=== PATIENT | female | born 1930 | race Caucasian/White ===

== ENCOUNTER → 2016-09-12 | Outpatient (CLI) | payer MEDICARE, BC ==
[~2016-09-12] MED LIST: ALEVE PO; ALEVE220 M1 PO; ANTIVERT PO; APRESOLINE PO; ARTHRITIS; ASPIRIN EC81 M1 PO; ASPIRIN PO; ASPIRIN81 M1 PO; ASPIRIN81 M2 PO; ATIVAN PO; ATORVASTATIN CA80 MG PO; CARVEDILOL6.25 MG PO; CATAPRES0.1 MG PO; CELEXA20 MG PO; CENTRUM PO; CENTRUM SILVER PO; CENTRUM SILVER1 EAC2 PO; CIPRO PO; CLONAZEPAM0.5 MG PO; COREG6.25 MG PO; CYCLOBENZAPRINE5 MG PO; DARVOCET-N 1001 TAB PO; DIOVAN HCT 160-1 TAB PO; ENDOCET 5-3251 EACH PO; FAMOTIDINE PO; FISH OIL 1,0001 CAP PO; FISH OIL 1,2001 EAC1 PO; HYDRALAZINE HCL50 MG PO; IBUPROFEN PO; INDERAL LA PO; INDERAL60 MG PO; KLONOPIN0.5 M3 PO; KLONOPIN0.5 MG PO; LASIX20 MG PO; LIPITOR PO; LIPITOR80 MG PO; LOPRESSOR PO; LOSARTAN POTAS100 MG PO; LOSARTAN-HCTZ1 EAC1 PO; MACROBID100 MG DOB; MEDI-MECLIZINE25 M1 PO; METAMUCIL; MOTION SICKNESS25 M5 PO; MULTI-VIT/MIN P1 TAB PO; NITROFURANTOIN100 M3 PO; PATIENT'S PHARMACY; PRESERVISION S1 EACH PO; PRESERVISION SO1 CAP PO; PRESERVISION1 EA PO; PRILOSEC PO; PRILOSEC20 M1 PO; PRINCIPEN250 MG PO; PROPRANOLOL HCL80 M1 PO; PROTONIX PO; SIMVASTATIN40 MG PO; ST JOSEPH ASPIR81 M1 PO; TOPROL XL 50 MG50 M1 PO; TOPROL XL PO; TRAMADOL HCL50 M1 PO; TRAMADOL HCL50 M2 PO; TYLENOL; ULTRAM PO; ZOFRAN ODT4 MG PO
--- NOTE | ~2016-09-12 | CT4 ---
[facility] A Service of [facility] RADIOLOGY TEXT RESULTS PATIENT: AYANNA GLEASON LOCATION: [facility] : 30 UNIT #: [id number] AGE: [address]: Howard Martinez MD SEX: F ORDER DR: [id number] [facility]. [place], [place] [address] [id number] O MR#: [id number] #: [id number] NAME: AYANNA GLEASON : 1930 SEX: F STUDY DATE/TIME: 09/12/2016 8:12 [facility]: STUDY DESCRIPTION: CT Abd and Pelv Wo Cont Attending Physician: Howard Martinez M.D. Referring Physician: Howard Martinez M.D. Ordering Physician: Howard Martinez M.D. Primary Care Physician: Howard Martinez M.D. MEDICAL IMAGING REPORT This report is preliminary unless electronic signature is present EXAM CT abdomen and pelvis without contrast INDICATIONS 86-year-old female with abdominal pain on and off for [address] abdomen and pelvis performed following the administration of oral contrast only. Coronal and sagittal reformatted images were obtained. This CT exam was performed with one or more of the following radiation dose reduction techniques: automatic exposure control, adjustment of mA and/or kV according to patient size, and iterative reconstruction. COMPARISON 06/07/2015 FINDINGS Evaluation of the lung bases demonstrates a small left pleural effusion and trace right pleural effusion. There is associated passive atelectasis in the lung bases left greater than right. The liver and gallbladder and spleen are unremarkable. The left kidney is unremarkable. There is severe right-sided hydronephrosis. The right ureter is normal in caliber. There is no evidence of any obstructing stone or obvious other obstruction. Stable small bilateral adrenal gland nodules likely adenomas. Pancreas unremarkable. There are kissing iliac stents. Surgical clips around the aorta. Pelvis: Colon is unremarkable. No free fluid. Hysterectomy. 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 IMPRESSION [facility] A Service of [facility] RADIOLOGY TEXT RESULTS PATIENT: AYANNA GLEASON LOCATION: [facility] : 30 UNIT #: [id number] AGE: [address]: Howard Martinez MD SEX: F ORDER DR: 1. There is severe right-sided hydronephrosis. Normal-caliber right ureter. Transition point is that the UPJ. No obstructing stone or obvious other obstruction. 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 2. Small left pleural effusion and trace right pleural effusion. 3. Additional findings as described Dictated by... Manjinder Kidd M.D. THIS IS AN ELECTRONICALLY VERIFIED REPORT Manjinder Kidd M.D. at 09/12/2016 4:52 PM ARS/robin TD: 09/12/2016 14:08 JOB #: [id number] MEDICAL IMAGING REPORT Page 1 of 1 COPY
== END | disposition home or self-care (01) ==
LOC: CCAT 06:53
DX: R10.9 Unspecified abdominal pain (principal); N13.30 Unspecified hydronephrosis; J90 Pleural effusion, not elsewhere classified
CPT/HCPCS: 74176

== ENCOUNTER → 2016-10-03 | Outpatient (CLI) | payer MEDICARE, BC | END | disposition home or self-care (01) | LOC: CSSDAY 10:03 | DX: M81.0 Age-related osteoporosis without current pathological fracture (principal); Z79.899 Other long term (current) drug therapy | CPT/HCPCS: 96372; J0897 ==

== ENCOUNTER 2016-11-29 16:11 | Inpatient (IN) | payer MEDICARE, BC ==
--- NOTE | ~2016-11-29 | OR ---
Unit #: [id number] #: [id number] Patient: AYANNA GLEASON [id number] [address] [place], [place] [address] [id number] I MR#: [id number] NAME: AYANNA GLEASON ROOM: [facility] Date of Procedure: 12/01/2016 Admission Date: 11/29/2016 Surgeon: Dony Girard M.D. : 1930 Attending Physician: Howard Martinez M.D. Primary Care Physician: Howard Martinez M.D. OPERATIVE REPORT PREOPERATIVE DIAGNOSES Noncardiac chest pain and epigastric pain. PROCEDURES PERFORMED Upper gastrointestinal endoscopy and biopsy. POSTOPERATIVE DIAGNOSES 1. Mild prepyloric antral diffuse gastritis. This was primarily in the form of erythema and erythematous streaks. 2. Small hiatus hernia. 3. Rest of the examination was normal up to third part of duodenum. RECOMMENDATIONS The patient should continue on once a day PPI therapy or H2 blockers. The most likely reason for her symptomatology is anxiety. She can be discharged home from GI standpoint on a regular diet. SEDATION USED MAC. DESCRIPTION OF PROCEDURE Following detailed explanation of the potential risks and complications of an upper endoscopy, namely perforation, bleeding, and complication related to sedation, the patient was brought to GI lab and laid in the left lateral decubitus position. Lubricated tip of the Olympus video upper endoscope was passed through the bite block into the proximal esophagus under direct vision. The entire esophageal mucosa was examined and appeared normal. Z-line was nicely demarcated, there being no esophagitis. The patient did have a small hiatus hernia. The scope was then advanced into the gastric cavity and the latter was insufflated. Mucosa of the fundus, body, and antrum was examined and the patient was noted to have diffuse prepyloric antral erythema indicating antral gastritis. No erosions or ulcers were seen. Pylorus was intubated with visualization of the normal duodenal bulb and second and third part of the duodenum. Upon withdrawal and retroflexion; incisura, cardia, and greater curve was examined and biopsy was obtained from the antrum for CLOtest. The scope was then withdrawn in the distal esophagus. The entire esophageal mucosa was examined all the way up to pharynx, no additional findings were noted. The patient tolerated the procedure without any postprocedure complications. Unit #: [id number] #: [id number] Patient: AYANNA GLEASON Dictated by..Cliff Bennett/shanda TD: 12/01/2016 10:05 JOB #: [id number] OPERATIVE REPORT Page 1 of 1 X Dony Girard MD PROCEDURE OPERATIVE NOTE
--- NOTE | ~2016-11-29 | HP ---
Unit #: [id number] #: [id number] Patient: AYANNA GLEASON [id number] [address] [place], [place] [address] [id number] I MR#: [id number] NAME: AYANNA GLEASON ROOM: 330 Age: 86 Sex: F Admission Date: 11/29/2016 : 1930 Attending Physician: Howard Martinez M.D. Primary Care Physician: Howard Martinez M.D. HISTORY AND PHYSICAL HISTORY OF PRESENT ILLNESS This is an 86-year-old white female with history of coronary artery disease with stent x2, hypertension, hyperlipidemia, abdominal aortic aneurysm repair, left carotid endarterectomy, Paget disease of the bone, chronic vertigo and familial tremor. Admitted through the emergency room with atypical chest pain that began at rest. There was no radiation, no diaphoresis, no nausea or vomiting, no near syncope, no palpitations, no pleuritic component. In the emergency room cardiac enzymes were normal. EKG showed nonspecific changes. The rest of her labs were fairly unremarkable except for some renal insufficiency, which is chronic and stable for the patient, and she is admitted for further evaluation. The patient has been placed on aspirin, Lovenox, nitro paste in a monitored bed. She has had no further chest pain since she has been here. Repeat cardiac enzymes were within normal limits, although her EKG showed some new inverted T waves in the lateral leads this morning. ALLERGIES She has stated intolerances or allergies to Lortab, Cipro, Zithromax, Phenergan, Lomotil. MEDS PRIOR TO ADMISSION 1. Pepcid 20 mg daily. 2. Hydralazine 100 mg b.i.d. 3. Propranolol ER 80 mg daily. 4. Meclizine 25 mg p.o. q.a.m. 5. Centrum 1 p.o. daily. 6. PreserVision 1 p.o. daily. 7. Aspirin 81 mg p.o. daily. 8. Lipitor 80 mg p.o. daily. 9. Klonopin 1 mg p.o. daily at bedtime. 10. Tramadol 50 mg t.i.d. p.r.n. pain. 11. Endocet 5/325 mg 1 p.o. b.i.d. p.r.n. pain. SURGICAL HISTORY 1. Cardiac stent. 2. Left carotid endarterectomy. 3. Abdominal aortic aneurysm repair. 4. Common iliac artery stent. 5. Cataract surgery. PAST MEDICAL HISTORY Unit #: [id number] #: [id number] Patient: AYANNA GLEASON 1. Paget disease of the bone. 2. Essential tremor. 3. Vertigo. 4. Peripheral arterial disease. 5. Coronary artery disease. 6. Hyperlipidemia. 7. Hypertension. SOCIAL HISTORY . Nonsmoker. Occasional alcohol. No street drug use. FAMILY HISTORY Family history is noncontributory. PHYSICAL EXAMINATION GENERAL: She is awake, alert, oriented x3, in no acute distress. VITALS: Afebrile. Pulse 76, respirations 19, blood pressure 129/52, O2 sats 96% on room air. HEENT: Unremarkable. NECK: Neck was supple without JVD, bruits, adenopathy or thyromegaly. CHEST: Clear to auscultation. CARDIOVASCULAR: Heart has a regular rate and rhythm with a soft systolic murmur best appreciated at the apex without an S3 gallop heard. ABDOMEN: Abdomen was soft, nondistended, nontender with positive bowel sounds and no hepatosplenomegaly. EXTREMITIES: Extremities showed no clubbing, cyanosis or edema. /RECTAL: Deferred. NEUROLOGIC: Exam is grossly intact except for the resting tremor. IMPRESSION 1. Chest pain. 2. Coronary artery disease. 3. Peripheral arterial disease. 4. Hypertension. 5. Hyperlipidemia. 6. Paget disease of the bone. 7. Chronic vertigo. 8. Familial tremor. 9. Status post abdominal aortic aneurysm repair. 10. Status post left carotid endarterectomy. 11. Chronic kidney disease, stage 3. PLAN Nitro paste, aspirin, Lovenox. Cardiology consult for possible cath versus stress testing. Further evaluation pending results of the above. Dictated by Howard Martinez M.D. LILY/alexia TD: 11/30/2016 08:22 JOB #: [id number] Unit #: [id number] #: [id number] Patient: AYANNA GLEASON HISTORY AND PHYSICAL Page 1 of 1 X Howard Martinez MD HISTORY AND PHYSICAL
--- NOTE | ~2016-11-29 | EKG ---
PATIENT: AYANNA GLEASON UNIT #: [id number] Ventricular Rate: 70 BPM Atrial Rate: 70 BPM P-R Interval: 140 ms QRS Duration: 104 ms Q-T Interval: 444 ms QTC Calculation(Bezet): 479 ms P Wallace: 5 degrees Calculated R Wallace: 37 degrees Calculated T Wallace: -34 degrees Diagnosis Line: Sinus rhythm with occasional Premature ventricular Diagnosis Line: complexes Diagnosis Line: Inferior infarct (cited on or before 17-JUL-2011) Diagnosis Line: Abnormal ECG Diagnosis Line: When compared with ECG of 29-NOV-2016 18:04, Diagnosis Line: Premature ventricular complexes are now Present Diagnosis Line: Questionable change in initial forces of Inferior Diagnosis Line: leads Diagnosis Line: Confirmed by TINO VILLASENOR MD ([id number]) on Diagnosis Line: 12/01/2016 7:20:46 AM INTERPRETING MD: PAULETTE
--- NOTE | ~2016-11-29 | EKG ---
PATIENT: AYANNA GLEASON UNIT #: [id number] Ventricular Rate: 70 BPM Atrial Rate: 70 BPM P-R Interval: 148 ms QRS Duration: 108 ms Q-T Interval: 436 ms QTC Calculation(Bezet): 470 ms P Crowley: 63 degrees Calculated R Crowley: 10 degrees Calculated T Crowley: -29 degrees Diagnosis Line: Normal sinus rhythm Diagnosis Line: Possible Inferior infarct (cited on or before Diagnosis Line: 17-JUL-2011) Diagnosis Line: Abnormal ECG Diagnosis Line: When compared with ECG of 08-APR-2013 19:31, Diagnosis Line: Questionable change in initial forces of Inferior Diagnosis Line: leads Diagnosis Line: Confirmed by TINO VILLASENOR MD ([id number]) on Diagnosis Line: 11/29/2016 10:55:41 PM INTERPRETING MD: PAULETTE
--- NOTE | ~2016-11-29 | CT4 ---
[facility] A Service of [facility] RADIOLOGY TEXT RESULTS PATIENT: AYANNA GLEASON LOCATION: [facility] : 30 UNIT #: [id number] AGE: [address]: Howard Martinez MD SEX: F ORDER DR: [id number] [facility]. [place], [place] [address] [id number] I MR#: [id number] Acc #: [id number] NAME: AYANNA GLEASON : 1930 SEX: F STUDY DATE/TIME: 11/30/2016 18:11 UNIT: A PCU ROOM: [facility] STUDY DESCRIPTION: CT Abd and Pelv Wo Cont Attending Physician: Howard Martinez M.D. Ordering Physician: Howard Martinez M.D. Primary Care Physician: Howard Martinez M.D. MEDICAL IMAGING REPORT This report is preliminary unless electronic signature is present EXAM CT abdomen and pelvis without contrast INDICATIONS Intermittent epigastric abdominal pain for the past 30 years, but worse over the past 2-[address] of the abdomen and pelvis. This CT exam was performed with one or more of the following radiation dose reduction techniques: automatic exposure control, adjustment of mA and/or kV according to patient size, and iterative reconstruction. COMPARISON 09/12/2016 FINDINGS ABDOMEN WITHOUT CONTRAST: Cardiomegaly. Linear scarring in the lung bases. The liver, spleen are unremarkable. Bilateral adrenal hyperplasia. Suspected right-sided hydronephrosis with cortical thinning in keeping with longstanding obstruction. This is stable. Pancreas, gallbladder show no acute abnormality. Moderate colonic stool burden. Bowel loops are nondilated. Atherosclerotic irregularity, abdominal aorta. There are bilateral common iliac stents in place. PELVIS WITHOUT CONTRAST: Previous hysterectomy. No pelvic mass. There is stable sclerosis of the left hemipelvis in keeping with Paget's disease. IMPRESSION [facility] A Service of [facility] RADIOLOGY TEXT RESULTS PATIENT: AYANNA GLEASON LOCATION: [facility] : 30 UNIT #: [id number] AGE: [address]: Howard Martinez MD SEX: F ORDER DR: 1. No clearly acute findings. 2. Likely chronic obstructive appearance of the right kidney is unchanged from the prior. 3. Other incidental findings are detailed above. Dictated by... Hubert Redman M.D. THIS IS AN ELECTRONICALLY VERIFIED REPORT Hubert Redman M.D. at 12/01/2016 10:06 AM LURDES/tello TD: 11/30/2016 18:50 JOB #: [id number] MEDICAL IMAGING REPORT Page 1 of 1 COPY
--- NOTE | ~2016-11-29 | CO ---
Unit #: [id number] #: [id number] Patient: AYANNA GLEASON [id number] [address] [place], [place] [address] [id number] I MR#: [id number] NAME: AYANNA GLEASON. ROOM: 330 Age: 86 Sex: F Admission Date: 11/29/2016 : 1930 Attending Physician: Howard Martinez M.D. Primary Care Physician: Howard Martinez M.D. Consultation Date: 11/30/2016 CONSULTATION REPORT REASON FOR CONSULTATION Chest pain. HISTORY OF PRESENT ILLNESS This is an 86-year-old white female with known history of coronary artery disease back in 2002, had an inferior wall IL, had PCI and stents placed to the proximal LAD and first diagonal branch. Other findings at that time showed 100% occlusion in the RCA and 30% to 40% stenosis in the distal left main. The patient since that time has had one stress test and it showed inferior wall involvement, ejection fraction was 69%. The patient does have Paget disease, hypertension, and hyperlipidemia, has had carotid endarterectomy, AAA repair, and COPD. The patient also is a reformed smoker. Drinks a glass of wine daily. She came to the emergency room after she had an onset of anxiousness, restlessness, and has some upper quadrant lower ribcage area discomfort. She explained it is just feeling like it was fullness, really was in the exact pain. She denied any pain up in substernal chest area up into the neck, bilateral jaws, shoulders, arms, or elbow. She denies any palpitations. No dizziness, presyncope, or syncope. Denies any shortness of breath. No recent cough, fever, or chills. She did say she was having a lot of belching. In the emergency room, the patient's blood pressure was 187/104, heart rate was 69, respirations 20, temperature 97.7, O2 saturation 98% on room air. Blood pressure was 187/104 mmHg. The patient was given two baby aspirins and normal saline started at 100 mL an hour, and was admitted for chest pain. Cardiology also given nitrate and subcu Lovenox. Cardiology consult to assist with evaluation and management. EKG showed normal sinus rhythm with some ST-T wave abnormalities in inferolateral leads also. Initial cardiac enzymes are negative. PAST MEDICAL HISTORY 1. Coronary artery disease. 2. Previous inferior wall IL in 2002, status post PCI and stent to the proximal LAD and first diagonal branch. Other findings on the cardiac cath revealed 100% occlusion of the RCA, distal left main 30% to 40% stenosis and normal left circumflex. 3. In 2007, adenosine Cardiolite stress test, layla-infarct ischemia involving the inferior wall with LVEF of 69%. 4. Paget disease. 5. Hypertension. 6. Hyperlipidemia. Unit #: [id number] #: [id number] Patient: AYANNA GLEASON 7. Peripheral vascular disease, left carotid endarterectomy, common iliac stent in 2002. 8. Abdominal aortic aneurysm repair in 1999. 9. COPD. 10. Gastroesophageal reflux disease. 11. History of vertigo. 12. Drinks a glass of wine daily. 13. Essential tremors. 14. Reformed smoker. 15. Chronic kidney disease, follows Dr. Pete. PAST SURGICAL HISTORY 1. Left carotid endarterectomy. 2. Iliac stent. 3. Abdominal aortic repair in 1999. 4. Status post PCI and stents to the proximal LAD and first diagonal branch in 2002. 5. Partial hysterectomy. 6. Cataract surgery. 7. Nephrostomy tube. HOME MEDICATIONS 1. Pepcid 20 mg p.o. daily. 2. Hydralazine 50 mg p.o. twice daily. 3. Propranolol 80 mg p.o. daily. 4. Meclizine 25 mg daily p.r.n. 5. Centrum vitamin 1 tablet p.o. daily. 6. PreserVision one tablet p.o. daily. 7. Aspirin 81 mg daily. 8. Atorvastatin 80 mg p.o. at bedtime. 9. Klonopin 1 tablet p.o. at bedtime. 10. Tramadol 50 mg t.i.d. p.r.n. for pain. 11. Endocet 5/325 one tablet p.o. twice daily p.r.n. ALLERGIES Hydrocodone, ciprofloxacin, azithromycin, promethazine, diphenoxylate. SOCIAL HISTORY The patient lives in her home. She is alone. She ambulates without a cane or walker. Does some of her light chores. She has a lot of knee problems. She quit smoking about 30 years ago. Drinks a glass of wine at night. No illicit drug abuse. FAMILY HISTORY Her mother at an elderly age, but had heart problems. Her father was in his 80s of unknown causes. Her siblings were in generally well health. REVIEW OF SYSTEMS See details in HPI. PHYSICAL EXAMINATION GENERAL: Ms. Ramos is an 86-year-old white female, in no acute respiratory distress. She is awake, alert, and oriented. VITAL SIGNS: Blood pressure is 140/56, heart rate 72, respirations 16, temperature 98.9, O2 saturations 96% on room air. NECK: Trachea midline. No thyromegaly or lymphadenopathy. Bilateral carotid bruits noted. Unit #: [id number] #: [id number] Patient: AYANNA GLEASON HEART: S1 and S2. Regular rate and rhythm. Soft systolic murmur in left sternal border. LUNGS: Diminished, otherwise clear. ABDOMEN: Soft and nontender. Positive bowel sounds present. EXTREMITIES: Pedal pulses are palpable. No pedal edema. DIAGNOSTIC STUDIES LABORATORY RESULTS: Glucose is 101, BUN 41, creatinine 2.0, EGFR is 22.0, sodium 142, potassium 3.9, chloride 110, CO2 of 25, calcium is 8.5, magnesium is 2.1. Total protein 7.8, albumin 4.6, bilirubin total 1.0, AST 29, ALT 22, alkaline phosphatase is 60. WBC is 6.8, hemoglobin 11.8, hematocrit 36.4, and platelets is 173. Initial cardiac enzymes CK-MB is 1.7, troponin less than 0.05. INR is 1.1. Urinalysis shows trace leuk esterase, 1+ protein, 1.0 urobilinogen, 5 to 10 wbc's, negative bacteria. Chest x-ray shows cardiomegaly. No effusions. Hiatal hernia. EKG shows normal sinus rhythm. T-wave inversion in inferolateral leads. Slow R-wave progression, left ventricular hypertrophy, biatrial enlargement. IMPRESSION 1. Chest pain questionable atypical. 2. Anxiety. 3. History of coronary artery disease. Previous myocardial infarction, status post percutaneous coronary intervention and stents to the proximal left anterior descending and first diagonal branch in 2002. 4. Paget disease. 5. Hypertension. 6. Hyperlipidemia. 7. Previous left carotid endarterectomy. 8. Abdominal aortic aneurysm repair. 9. Chronic obstructive pulmonary disease, reformed smoker. 10. Essential tremors. 11. Chronic kidney disease. 12. History of vertigo. 13. Drinks a glass of wine daily. 14. Reformed smoker. PLAN 1. Cardiology consult to assist with evaluation and management. On interview and examine the patient, her symptoms are somewhat atypical for unstable angina palpating on the lower rib cage area, upper quadrant areas where she explained she has a fullness. She says it not really any type of pain. She denies any diaphoresis, palpitations, dizziness, shortness of breath with sensation. Dr. Payton had a long discussion with the patient and she prefers not to have any ischemic heart disease workup at this time if it is not necessary. She may have had some type of anxiety with a spell, was start Celexa 20 mg p.o. daily. 2. On exam, there is no signs or symptoms of acute congestive heart failure. 3. Stop the nitroglycerin paste. Continue on aspirin, in addition to she is on hydralazine and propranolol and statin. Her blood pressure is fluctuating a little bit, but we will monitor and make any adjustments if needed. 4. Further recommendations pending per Dr. Payton. We will instruct her to follow up with Dr. Man on , January 26 at 1:45 p.m. the patient is active patient of Dr. Man and has not seen him over a year, so we will make sure she is aware that scheduled appointment. Unit #: [id number] #: [id number] Patient: AYANNA GLEASON Thank you very much for allowing us to assist in the care. Dictated by... Yaniv Velarde/shanda TD: 12/01/2016 12:15 JOB #: [id number] CC: Howard Martinez M.D. CONSULTATION REPORT Page 1 of 1 X Sandrita Strange APRN X CONSULTATION REPORT
--- NOTE | ~2016-11-29 | CR72 ---
[facility] A Service of [facility] RADIOLOGY TEXT RESULTS PATIENT: AYANNA GLEASON LOCATION: [facility] 330- : 30 UNIT #: [id number] AGE: [address]: Howard Martinez MD SEX: F ORDER DR: [id number] [facility] [address]. [place], [place] [address] [id number] I MR#: [id number] Acc #: [id number] NAME: AYANNA GLEASON. : 1930 SEX: F STUDY DATE/TIME: 11/29/2016 17:28 UNIT: [address] ROOM: [facility] STUDY DESCRIPTION: CR Chest Single View Portable Attending Physician: Howard Martinez M.D. Ordering Physician: Thuan Matute D.O. Primary Care Physician: Howard Martinez M.D. MEDICAL IMAGING REPORT This report is preliminary unless electronic signature is present EXAM Portable chest. HISTORY Chest tightness, shortness of air with activity x2 days. COMPARISON 04/08/2013 FINDINGS A portable view of the chest demonstrates lordotic positioning. Cardiomegaly. No focal airspace disease or consolidation. No sizeable effusions. No visible pneumothorax. Middle mediastinal density suggests hiatal hernia. Dictated by... Lilliana Kidd M.D. THIS IS AN ELECTRONICALLY VERIFIED REPORT Lilliana Kidd M.D. at 11/30/2016 2:48 PM Nura TD: 11/30/2016 00:18 JOB #: [id number] MEDICAL IMAGING REPORT Page 1 of 1 COPY
--- NOTE | ~2016-11-29 | EKG ---
PATIENT: AYANNA GLEASON UNIT #: [id number] Ventricular Rate: 60 BPM Atrial Rate: 60 BPM P-R Interval: 152 ms QRS Duration: 100 ms Q-T Interval: 452 ms QTC Calculation(Bezet): 452 ms P [place]: 20 degrees Calculated R [place]: 3 degrees Calculated T [place]: -18 degrees Diagnosis Line: Normal sinus rhythm Diagnosis Line: T wave abnormality, consider inferolateral Diagnosis Line: ischemia Diagnosis Line: Abnormal ECG Diagnosis Line: When compared with ECG of 30-NOV-2016 06:23, Diagnosis Line: (unconfirmed) Diagnosis Line: Premature ventricular complexes are no longer Diagnosis Line: Present Diagnosis Line: Confirmed by TINO VILLASENOR MD ([id number]) on Diagnosis Line: 12/01/2016 7:25:09 AM INTERPRETING MD: PAULETTE
--- NOTE | ~2016-11-29 | CO ---
Unit #: [id number] #: [id number] Patient: AYANNA MILLER [id number] [address] [place], [place] [address] [id number] I MR#: [id number] NAME: AYANNA MILLER. ROOM: 330 Age: 86 Sex: F Admission Date: 11/29/2016 : 1930 Attending Physician: Howard Martinez M.D. Primary Care Physician: Howard Martinez M.D. Consultation Date: 11/30/2016 CONSULTATION REPORT REASON FOR CONSULTATION Atypical upper abdominal and chest pain. HISTORY OF PRESENT ILLNESS Ms. Miller is an 86-year-old white female. The patient is . Her having many years, so the patient lives by herself. She does not drive and is dependent of her daughter for any outdoor shopping or chores. She says she has always on the go and wants to be busy. She mentions what seems like extremely restless situation, where she was complaining of discomfort in the retrosternal area of the chest as well as in the upper abdomen. There were no preceding nausea, vomiting, or dyspeptic symptoms. She denies any history of relationship with meals in these symptoms. Overall, she is feeling better in herself and now there has been no recent change in her bowel pattern, although the latter is generally erratic with intermittent episodes of loose bowel movements. Her appetite is unchanged. There is no history of weight loss. PAST MEDICAL HISTORY Significant for history of hypertension; coronary artery disease, status post PTCA and angioplasties and coronary stents. She also history of hyperlipidemia, history of abdominal aortic aneurysm repair, Paget's disease of bone, history of hereditary familial tremor and chronic vertigo. PAST SURGICAL HISTORY Included a PTCA and angioplasty and coronary artery stent placement, also history of left carotid endarterectomy, repair of an abdominal aortic aneurysm, stenting of common iliac artery, and cataract surgery. MEDICATIONS At home included Pepcid, hydralazine, propranolol, meclizine, Centrum Silver, PreserVision, aspirin, Lipitor, Klonopin, tramadol, Endocet. ALLERGIES Lortab, ciprofloxacin, Zithromax, Phenergan, and Lomotil. SOCIAL HISTORY She does not smoke. Drinks very rarely. Lives at home by herself. She is . FAMILY HISTORY No family history of colon, pancreatic cancer, or liver disease. REVIEW OF SYSTEMS Detailed review of organ systems does not reveal any recent weight loss. Unit #: [id number] #: [id number] Patient: AYANNA MILLER No history of fever, chills, or rigors. No history of headache or syncope. No history of dysuria, hematuria, or pyuria. No history of focal seizures or extremity weakness. Rest of the review of organ system is unremarkable. PHYSICAL EXAMINATION GENERAL: She is comfortable, alert, and oriented. VITAL SIGNS: Temperature is 98.2, pulse 69 per minute and regular, respiratory rate 16, blood pressure is 142/52. She weighs 137 pounds and her baseline weight is about 150 pounds in the past. There is weight loss about 20 pounds in the past year or two. HEENT: She has no pallor, icterus, lymphadenopathy, or peripheral edema. CARDIOVASCULAR: Normal heart sounds. No murmurs. LUNGS: Auscultation over the lungs reveal normal breath sounds. Good air entry. ABDOMEN: Soft and nontender. Liver and spleen are not palpable. Bowel sounds normal. DIAGNOSTIC STUDIES LABORATORY RESULTS: Shows a BUN and creatinine 41 and 2.0. CBC is unremarkable. CLINICAL IMPRESSION 1. The patient has atypical chest pain and epigastric pain. Consider a diagnostic endoscopy in this situation, even though there were no clear-cut dyspeptic symptoms. She also has acute kidney injury and the etiology of this is probably prerenal. 2. Possible anxiety. 3. Weight loss about 20 pounds in the past couple of years. 4. A diagnostic endoscopy will be performed tomorrow morning. In the meantime, the patient have diet as tolerated. Thank you very much for asking me to see this pleasant woman. I appreciate the consult. Dictated by... Cliff Lewis/hsanda TD: 12/01/2016 01:42 JOB #: [id number] CONSULTATION REPORT Page 1 of 1 X Dony Girard MD X CONSULTATION REPORT
[~2016-11-29 16:11] MED LIST changes: -APRESOLINE PO; -ATIVAN PO; -CATAPRES0.1 MG PO; -CELEXA20 MG PO; -INDERAL LA PO; -LASIX20 MG PO; -LIPITOR80 MG PO; -LOPRESSOR PO; -PATIENT'S PHARMACY; -PRINCIPEN250 MG PO; -PROTONIX PO
[2016-11-29 17:28] LABS: BASOPHIL# 0.1 X10e3 (0-0.3); BASOPHIL% 1.9 % (0-2.5); DIFF IND NO; EOSINOPHIL# 0.1 X10e3 (0-0.7); EOSINOPHIL% 0.9 % (0.0-7.0); HEMATOCRIT 36.4 % (35.0-45.0); HEMOGLOBIN 11.8 gm/dL (12.0-16.0); LYMPHOCYTE# 0.6 X10e3 (1.0-3.5); LYMPHOCYTE% 8.9 % (17.0-45.0); MEAN CELL VOLUME 82.7 FL (83-96); MEAN CORPUSCULAR HEMOGLOBIN 26.8 PG (28-34); MEAN CORPUSCULAR HGB CONC 32.3 g/dL (30-36); MEAN PLATELET VOLUME 9.1 FL (6.5-11.5); MONOCYTE# 0.6 X10e3 (0-1.0); MONOCYTE% 8.4 % (3.0-12.0); NEUTROPHIL# 5.4 X10e3 (1.5-7.1); NEUTROPHIL% 79.9 % (40-75); PLATELET COUNT 173 X10e3 (140-420); RED CELL DISTRIBUTION WIDTH 15.5 % (11.0-15.5); WHITE BLOOD COUNT 6.8 X10e3 (4.0-10.5)
[2016-11-29 17:48] LABS: INR 1.1; PARTIAL THROMBOPLASTIN TIME 26.8 SECONDS (23.5-31.3); PROTHROMBIN TIME (PATIENT) 12.1 SECONDS (10.0-11.7)
[2016-11-29 17:51] LABS: ALBUMIN SERUM 4.6 g/dL (3.5-5.0); BILIRUBIN, DIRECT 0.2 mg/dL (0.0-0.2); BILIRUBIN,INDIRECT 0.8 mg/dL (0.0-0.9); CALCIUM SERUM 9.3 mg/dL (8.4-10.2); CREATININE SERUM 1.9 mg/dL (0.6-1.4); GLOM FILT RATE Estimated 23.5 mL/min (>60); POTASSIUM 3.9 mmol/L (3.5-5.1); PROTEIN TOTAL SERUM 7.8 g/dL (6.0-8.3)
[2016-11-29 18:01] LABS: POC - CKMB 1.6 ng/mL (0.0-7.9); POC - TROPONIN <0.05 ng/mL (<=0.05)
[2016-11-29 19:30] LABS: POC - CKMB 1.7 ng/mL (0.0-7.9); POC - TROPONIN <0.05 ng/mL (<=0.05)
[2016-11-30 02:01] LABS: CK TOTAL 54 IU/L (26-140)
[2016-11-30 08:35] LABS: CK TOTAL 49 IU/L (26-140)
[2016-11-30 09:49] LABS: BUN/CREATININE RATIO 20.5; CALCIUM SERUM 8.5 mg/dL (8.4-10.2); MAGNESIUM 2.1 mg/dL (1.6-3.0); POTASSIUM 3.9 mmol/L (3.5-5.1)
[2016-11-30 11:50] LABS: URINE SOURCE CLEAN CATCH
[2016-11-30 12:01] LABS: CULTURE INDICATED? YES; U HYALINE CASTS AUWI 0-2 /[LPF]; URBCS1 AUWI 0-2 /[HPF] (0-2); URINE APPEARANCE CLEAR; URINE BACTERIA AUWI NEG (NEGATIVE); URINE BILIRUBIN NEG (NEG); URINE BLOOD NEG (NEG); URINE COLOR YELLOW; URINE GLUCOSE NEG (NEG); URINE KETONE TRACE (NEG); URINE LEUKOCYTE ESTERASE TRACE (NEG); URINE NITRATE NEG (NEG); URINE PROTEIN 1+ (NEG); URINE SPECIFIC GRAVITY 1.018 (1.003-1.035); URINE SQUAMOUS EPITHELIAL CELL OCC /[HPF]
[2016-11-30 16:58] LABS: AMYLASE 38 U/L (0-46); LIPASE 35 U/L (22-51)
[2016-12-01 05:19] LABS: HEMATOCRIT 29.5 % (35.0-45.0); MEAN CELL VOLUME 82.8 FL (83-96); MEAN CORPUSCULAR HEMOGLOBIN 26.9 PG (28-34); MEAN CORPUSCULAR HGB CONC 32.4 g/dL (30-36); MEAN PLATELET VOLUME 9.7 FL (6.5-11.5); RED BLOOD COUNT 3.56 X10e (3.90-5.30); RED CELL DISTRIBUTION WIDTH 15.2 % (11.0-15.5)
[2016-12-01 05:24] LABS: HEMOGLOBIN 9.6 gm/dL (12.0-16.0)
[2016-12-01 06:52] LABS: ALBUMIN SERUM 3.4 g/dL (3.5-5.0); BILIRUBIN,TOTAL 0.9 mg/dL (0.2-2.0); BUN/CREATININE RATIO 18.42; CALCIUM SERUM 8.2 mg/dL (8.4-10.2); CREATININE SERUM 1.9 mg/dL (0.6-1.4); GLOM FILT RATE Estimated 23.5 mL/min (>60); POTASSIUM 4.3 mmol/L (3.5-5.1); PROTEIN TOTAL SERUM 5.9 g/dL (6.0-8.3)
== END 2016-12-01 20:41 | disposition left against medical advice (07) | DRG 313 ==
LOC: CED 16:11 → CEDOF 18:20 → CED 19:12 → CEDOF 19:12 → C3A PCU 20:39
PROVIDERS: Emergency Medicine; Internal Medicine; Internal Medicine Cardiovascular Disease; Internal Medicine Gastroenterology
PROC: 0DB78ZX Excision of Stomach, Pylorus, Via Natural or Artificial Opening Endoscopic, Diagnostic (ICD-10-PCS; principal; 2016-11-29)
DX: R07.89 Other chest pain (principal); I25.2 Old myocardial infarction; N17.9 Acute kidney failure, unspecified; J44.9 Chronic obstructive pulmonary disease, unspecified; D64.9 Anemia, unspecified; I47.1 Supraventricular tachycardia; Z95.1 Presence of aortocoronary bypass graft; I12.9 Hypertensive chronic kidney disease with stage 1 through stage 4 chronic kidney disease, or unspecified chronic kidney disease; N18.3 Chronic kidney disease, stage 3 (moderate); I25.10 Atherosclerotic heart disease of native coronary artery without angina pectoris; Z95.5 Presence of coronary angioplasty implant and graft; Z87.891 Personal history of nicotine dependence; E78.5 Hyperlipidemia, unspecified; K21.9 Gastro-esophageal reflux disease without esophagitis; Z90.711 Acquired absence of uterus with remaining cervical stump; Z98.49 Cataract extraction status, unspecified eye; G25.0 Essential tremor; Z79.82 Long term (current) use of aspirin; K44.9 Diaphragmatic hernia without obstruction or gangrene; K29.50 Unspecified chronic gastritis without bleeding; R10.13 Epigastric pain; F41.9 Anxiety disorder, unspecified
CPT/HCPCS: 36415; 71010; 74176; 80048; 80053; 80076; 81003; 82150; 82550; 82553; 83690; 83735; 84484; 85025; 85027; 85610; 85730; 87077; 87086; 93005; 99285; J1650; J2405

== ENCOUNTER 2017-01-12 11:11 | Inpatient (IN) | payer MEDICARE, BC ==
[~2017-01-12] VITALS: Ht 157.5 cm; Wt 60.0 kg
--- NOTE | ~2017-01-12 | HP ---
Unit #: [id number] #: [id number] Patient: AYANNA GLEASON [id number] [address] [place], [place] [address] [id number] I MR#: [id number] NAME: AYANNA GLEASON ROOM: [facility] Age: 86 Sex: F Admission Date: 01/12/2017 : 1930 Attending Physician: Howard Martinez M.D. Primary Care Physician: Howard Martinez M.D. HISTORY AND PHYSICAL HISTORY OF PRESENT ILLNESS The patient is an 86-year-old lady with hypertension, chronic kidney disease, right hydronephrosis despite stent placement, insomnia, hyperlipidemia, peripheral artery disease, coronary artery disease and pseudogout. The patient presents with worsening congestive heart failure, worsening of bilateral pleural effusions, lower extremity edema and dyspnea on exertion for several days. The patient is now having extensive amount of medications. The patient [facility] This was her first time being diagnosed. However, although the patient was sent home on Lasix she was never able to fill it, so she was unable to take the dose of Lasix. The patient had acute worsening shortness of air and respiratory, requiring BiPAP. The patient was unable to come off the BiPAP overnight and remained on the BiPAP overnight, persistently short of breath. Therefore, we have been asked to see the patient regarding pleural effusions bilaterally, which appear to be increasing in size from previous x-ray which was done approximately two months ago. PAST MEDICAL HISTORY 1. Coronary artery disease. 2. Peripheral arterial disease. 3. Hypertension. 4. Diastolic congestive heart failure. 5. Paget disease of the bone. 6. Chronic kidney disease stage 3. 7. Chronic right hydronephrosis. 8. Hyperlipidemia. 9. Insomnia. 10. Meniere disease. 11. Familial tremor. 12. Pseudogout. PAST SURGICAL HISTORY 1. Partial hysterectomy. 2. Cardiac stents. 3. Cardiac surgery. 4. Carotid endarterectomy on the left. 5. Abdominal aortic aneurysm graft. 6. Cystoscopy. SOCIAL HISTORY The patient is . Nonsmoker and nondrinker. No history of street drug use. Unit #: [id number] #: [id number] Patient: AYANNA GLEASON FAMILY HISTORY Noncontributory. ALLERGIES Promethazine, Lomotil, Zithromax, ciprofloxacin, hydrocodone and diphenoxylate. HOME MEDICATIONS 1. Pepcid 40 mg daily. 2. Metoprolol 25 mg b.i.d. 3. Prolia 60 mg subcutaneously q.6 months. 4. Clonidine 0.1 mg b.i.d. 5. Celexa 20 mg daily. 6. Tramadol 50 mg b.i.d. p.r.n. 7. Klonopin 0.5 mg at bedtime. 8. Lipitor 80 mg daily. 9. Enteric coated aspirin 81 mg daily. 10. Multivitamin daily. 11. Meclizine 25 mg daily. 12. Hydralazine 100 mg b.i.d. REVIEW OF SYSTEMS Significant for shortness of breath, lower extremity edema, otherwise 12-point review of systems is negative for any findings. PHYSICAL EXAMINATION VITALS: T current 98.3, pulse 61, respiratory rate 18, blood pressure 122/43. Ins and outs . HEENT: Extraocular muscles intact. The patient is on BiPAP. NECK: Jugular venous distension. LUNGS: No accessory muscle use. There are some decreased breath sounds in the bilateral bases. A few scattered crackles. HEART: Regular rate. No gallop. ABDOMEN: Soft, nontender and nondistended. EXTREMITIES: Edema plus 1. DIAGNOSTIC STUDIES IMAGING: Chest x-ray shows bilateral pleural effusions, moderate and increasing. LABORATORY: BNP 1488. Vitamin B12 and folate are normal. Blood gas 7.28, 56 and 68. CBC 12.3, 10.2 and 268. ASSESSMENT 1. Congestive heart failure. Respiratory failure, likely secondary to fluid overload. Cardiology is following for ischemia. The patient is on BiPAP for retention. 2. Bilateral pleural effusions, likely congestive heart failure related. I am going to ask for some thoracentesis to see if we can help the patient come off BiPAP is being instituted. We would like to see if the patient can stay off the BiPAP during the day and then on the BiPAP at night to help her rest. The infiltrate may also show possible pneumonia. Therefore, we are going to get a check of procalcitonin and start the patient on antibiotics. Dictated by Unit #: [id number] #: [id number] Patient: AYANNA GLEASON Onofre Reynoso M.D. BM/gz TD: 01/13/2017 16:03 JOB #: [id number] HISTORY AND PHYSICAL Page 1 of 1 X Candelario Reynoso MD X HISTORY AND PHYSICAL
--- NOTE | ~2017-01-12 | CO ---
Unit #: [id number] #: [id number] Patient: AYANNA GLEASON [id number] [address] [place], [place] [address] [id number] I MR#: [id number] NAME: AYANNA GLEASON ROOM: [facility] Age: 86 Sex: F Admission Date: 01/12/2017 : 1930 Attending Physician: Howard Martinez M.D. Primary Care Physician: Howard Martinez M.D. CONSULTATION REPORT REASON FOR CONSULTATION Congestive heart failure. HISTORY OF PRESENT ILLNESS This is an 86-year-old white female, who is known to Dr. Man, that has a history of myocardial infarction in 2002 where she underwent PCI with stent placement to the LAD and first diagonal branch. At that time, she had a chronic 100% occlusion to the right coronary artery. She was recently discharged from this facility in late November for chest pain. At that time, the chest pain was atypical for significant ischemic heart disease. She ruled out for an acute myocardial infarction. The patient performed not to have an ischemic heart disease workup. She had EGD done where she was found to have gastritis. After discharge home, the patient did well. She went to visit her sister in [place]. While there, she had an episode of dyspnea and hematuria and was admitted to [facility]. She was found to have a urinary tract infection and was recently started on antibiotics. Her oxygen saturation levels were low at 88%, according to her sister. She was sent home on oxygen. For the past two days, she has been short of breath. Dyspnea has occurred at rest. According to the daughter, she had no report of cough, fever, or chills. There was no leg edema. The patient is on BiPAP and is unable to provide much history. She only reports shortness of breath. She denied chest pain. In the emergency room, she was found to have an elevated BNP of 1488. Chest x-ray was suggestive of congestive heart failure. Her troponin is initially negative. Blood pressure was elevated in the emergency room 200/80 mmHg. PAST MEDICAL HISTORY 1. Inferior wall myocardial infarction in 2002, status post cardiac catheterization where she was found to have 100% occlusion to the right coronary artery. Distal left main 30% to 40%. Circumflex artery normal. Status post PCI with stent placement to the proximal LAD and first diagonal branch. 2. Adenosine Cardiolite stress test in 2007 showed layla-infarct ischemia involving the inferior wall. Ejection fraction 69%. 3. Hypertension. 4. Hyperlipidemia. 5. Abdominal aortic aneurysm repair in 1999. 6. Peripheral vascular disease, status post left carotid endarterectomy. 7. History of Paget's disease. 8. COPD. 9. GERD. 10. Chronic kidney disease. 11. Chronic respiratory failure. Unit #: [id number] #: [id number] Patient: AYANNA GLEASON 12. EGD, November 2016, showed antral wall with diffuse gastritis. SOCIAL HISTORY The patient lives at home alone. She usually ambulates mostly with a cane, but occasionally uses a walker and wheelchair. Her daughter and sister are currently assisting her with her care. She quit smoking more than 35 years ago. Drinks occasional glass of wine. FAMILY HISTORY Positive for heart disease in her mother. ALLERGIES Hydrocodone, ciprofloxacin, azithromycin, promethazine, diphenoxylate. HOME MEDICATIONS 1. Lipitor 80 mg daily. 2. Ampicillin 250 mg t.i.d. 3. Lopressor 25 mg b.i.d. 4. Celexa 20 mg daily. 5. Clonidine 0.1 mg b.i.d. 6. Protonix 40 mg daily. 7. Lorazepam 0.5 mg b.i.d. 8. Meclizine 25 mg daily. 9. Propranolol 80 mg daily. 10. Furosemide 20 mg daily. 11. Hydralazine 150 mg b.i.d. REVIEW OF SYSTEMS Unable to obtain because the patient is currently on BiPAP. See details in the HPI. PHYSICAL EXAMINATION VITAL SIGNS: Blood pressure 200/80, heart rate 86, temperature 99.3. GENERAL: This is an 86-year-old, mildly obese, white female who is currently in no acute respiratory distress. She is on BiPAP. NEUROLOGIC: She is awake, alert, and oriented. NECK: Trachea is midline. No thyromegaly or lymphadenopathy. No jugular venous distention. HEART: S1, S2 heart sounds are normal. No murmurs. No rubs. No clicks. Regular rate and rhythm. LUNGS: Diminished breath sounds both lungs with rales both lung bases. ABDOMEN: Soft, nontender with bowel sounds present. EXTREMITIES: With weak pedal pulses without leg edema. SKIN: Warm and dry. DIAGNOSTIC STUDIES LABORATORY: White count 12.3, hemoglobin 10.2, hematocrit 32.5, platelet count (1) . Sodium 141, potassium 4.4, BUN 28, creatinine 1.4, glucose 127. BNP 1488. Troponin less than 0.03. IMAGING: Chest x-ray shows congestive heart failure. CARDIOVASCULAR: Electrocardiogram shows normal sinus rhythm. There are no acute ischemic changes. IMPRESSION 1. Acute on chronic hypoxic respiratory failure. 2. Acute congestive heart failure. Unit #: [id number] #: [id number] Patient: AYANNA GLEASON 3. History of myocardial infarction with percutaneous coronary intervention and stent to the LAD and first diagonal branch in 2002. 4. Chronic occluded right coronary artery per cardiac catheterization in 2002. 5. Uncontrolled hypertension. 6. Chronic obstructive pulmonary disease. 7. Chronic kidney disease. 8. Pulmonary edema. PLAN 1. Cardiology was consulted for congestive heart failure. Chest x-ray more consistent with pulmonary edema. The patient has been given Lasix in the emergency room. Will continue to diuresis with IV diuretics. 2. Repeat 2D echocardiogram for left ventricular systolic function. 3. Continue to trend troponin to rule out myocardial infarction. 4. Will monitor renal status. 5. Pulmonary edema may be secondary to cardiac cause. May need repeat cardiac catheterization if the patient agrees. 6. Further recommendations to follow. Thank you for allowing us to assist with this patient's care. Dictated by... Mikki GaoPKyleRKyleN. for Cliff Hayward TD: 01/13/2017 12:09 JOB #: [id number] CONSULTATION REPORT Page 1 of 1 X Dwight Frey APRN X CONSULTATION REPORT
--- NOTE | ~2017-01-12 | EKG ---
PATIENT: AYANNA GLEASON UNIT #: [id number] Ventricular Rate: 73 BPM Atrial Rate: 73 BPM P-R Interval: 150 ms QRS Duration: 94 ms Q-T Interval: 436 ms QTC Calculation(Bezet): 480 ms P [place]: 3 degrees Calculated R [place]: 11 degrees Calculated T [place]: -9 degrees Diagnosis Line: Normal sinus rhythm Diagnosis Line: T wave abnormality, consider inferior ischemia Diagnosis Line: , old Inferior infarct Diagnosis Line: Abnormal ECG Diagnosis Line: When compared with ECG of 12-JAN-2017 11:37, Diagnosis Line: (unconfirmed) Diagnosis Line: No significant change was found Diagnosis Line: Confirmed by BOSTON DOE MD ([id number]) on 01/14/2017 Diagnosis Line: 8:21:23 AM INTERPRETING MD: NADER BRAN
--- NOTE | ~2017-01-12 | CT4 ---
[facility] A Service of [facility] & [facility] RADIOLOGY TEXT RESULTS PATIENT: AYANNA GLEASON LOCATION: [facility] 326- : 30 UNIT #: [id number] AGE: [address]: Howard Martinez MD SEX: F ORDER DR: [id number] [facility] [address] [facility]. [place], [place] [address] [id number] MR#: [id number] Acc #: [id number] NAME: AYANNA GLEASON. : 1930 SEX: F STUDY DATE/TIME: 01/17/2017814 UNIT: [address] ROOM: [facility] STUDY DESCRIPTION: CT Abd and Pelv Wo Cont Attending Physician: Howard Martinez M.D. Ordering Physician: Howard Martinez M.D. Primary Care Physician: Howard Martinez M.D. MEDICAL IMAGING REPORT This report is preliminary unless electronic signature is present EXAM CT abdomen and pelvis without contrast, 01/17/2017, 0815 hours. CLINICAL HISTORY Abdominal pain diffusely with flank pain and hip pain since last night. Patient had fluid drained from chest yesterday. COMPARISON CT abdomen 11/30/2016, chest x-ray 01/13/2017 and 01/16/2017. TECHNIQUE Helical noncontrasted images were obtained from the lung bases through the pubic symphysis. Sagittal and coronal reconstructions were performed. Total exam DLP 612 mGy-cm. This CT exam was performed with one or more of the following radiation dose reduction techniques: automatic exposure control, adjustment of mA and/or kV according to patient size, and iterative reconstruction. FINDINGS Images through the lung bases demonstrate small to moderate symmetric dependent bilateral pleural effusions with mild adjacent atelectasis. These are likely unchanged from the post thoracentesis chest x-ray yesterday. There are increased from the CT abdomen study of 11/30/2016. There is atelectasis at both bases. Noncontrasted images through the abdomen demonstrate no change in the appearance of the liver, spleen, pancreas, or gallbladder. The adrenal glands are normal. The left kidney is unchanged. The right kidney which has been chronically obstructed demonstrates heterogeneous hyperdensity within the obstructed component of the kidney having a somewhat rounded appearance new from [facility] A Service of [facility] RADIOLOGY TEXT RESULTS PATIENT: AYANNA GLEASON LOCATION: [facility] 326-01 : 30 UNIT #: [id number] AGE: [address]: Howard Martinez MD SEX: F ORDER DR: 11/30/2016. Given the overall size and the relatively short interval, this most likely represents hemorrhage rather than a tumor. A nephrostomy tube may be necessary to relieve the patient's pain. There is very minimal stranding of the perinephric fat increased inferior to the kidney. The bladder is distended and appears normal. No blood products are seen in the bladder. The ureters are unremarkable. The abdominal aorta is diffusely atherosclerotic with a graft seen at the distal aorta extending into the iliac vessels similar to prior study. The stomach and small bowel are nondilated. There is increased stool throughout the right colon, transverse colon with nondistended distal colon. There are uncomplicated diverticula in the sigmoid colon. There is no free fluid. IMPRESSION 1. The patient has moderate dependent symmetric pleural effusions at the bases with adjacent atelectasis. These are felt similar to the post thoracentesis chest x-ray from yesterday but are new from 11/30/2016. 2. The patient has had a chronically obstructed right kidney with a dilated renal pelvis and renal calyces. Within this, there is new dependent heterogeneous hyperdensity not present on 11/30/2016. Given the short interval from 11/30/2016, this is favored to represent hemorrhage. Other entities including fungal infection are possible. This is likely the source of the patient's pain and nephrostomy tube placement may be necessary to relieve the patient's pain. Urologic consult recommended. 3. Right renal tumor is felt less likely unless this is a tumor that hemorrhaged. 4. Increased stool through the right colon and transverse colon. 5. Diverticulosis of the sigmoid colon without evidence of diverticulitis. COMMENT Findings [facility] Dr[facility] Moctezuma at the time of this dictation. She will notify Dr. Martinez. Dictated by... Cecilia Moctezuma M.D. THIS IS AN ELECTRONICALLY VERIFIED REPORT Cecilia Moctezuma M.D. at 01/17/2017 6:56 PM JACQUES/ernestine TD: 01/17/2017 15:03 [facility] A Service of [facility] RADIOLOGY TEXT RESULTS PATIENT: AYANNA GLEASON LOCATION: [facility] 326-01 : 30 UNIT #: [id number] AGE: [address]: Howard Martinez MD SEX: F ORDER DR: LUIS ENRIQUE #: [id number] MEDICAL IMAGING REPORT Page 1 of 1 COPY
--- NOTE | ~2017-01-12 | CR72 ---
[facility] A Service of [facility] & [facility] RADIOLOGY TEXT RESULTS PATIENT: AYANNA GLEASON LOCATION: [facility] 326-01 : 30 UNIT #: [id number] AGE: [address]: Howard Martinez MD SEX: F ORDER DR: [id number] [facility] [address]. [place], [place] [address] [id number] I MR#: [id number] Acc #: [id number] NAME: AYANNA GLEASON. : 1930 SEX: F STUDY DATE/TIME: 01/14/2017 4:41 UNIT: [facility] ROOM: [facility] STUDY DESCRIPTION: CR Chest Single View Portable Attending Physician: Howard Martinez M.D. Ordering Physician: Onofre Reynoso M.D. Primary Care Physician: Howard Martinez M.D. MEDICAL IMAGING REPORT This report is preliminary unless electronic signature is present EXAM Chest x-ray 01/14/2017 HISTORY Shortness of air. Thoracentesis yesterday. TECHNIQUE AP portable upright chest x-ray. FINDINGS There is no visible pneumothorax following left thoracentesis yesterday. Small right pleural effusion is noted with mild right lung base atelectasis. Moderate cardiomegaly with mild vascular congestion. The examination is unchanged since the last study obtained yesterday. IMPRESSION Stable portable chest radiograph, unchanged since yesterday. Dictated by... Douglas Teague M.D. THIS IS AN ELECTRONICALLY VERIFIED REPORT Douglas Teague M.D. at 01/14/2017 9:59 PM DIANA/santa TD: 01/14/2017 07:54 JOB #: [id number] MEDICAL IMAGING REPORT Page 1 of 1 COPY
--- NOTE | ~2017-01-12 | DS ---
Unit #: [id number] #: [id number] Patient: AYANNA GLEASON [id number] [address] [place], [place] [address] [id number] I MR#: [id number] NAME: AYANNA GLEASON ROOM: 326 Age: 86 Sex: F Admission Date: 01/12/2017 : 1930 Discharge Date: 01/20/2017 Attending Physician: Howard Martinez M.D. Primary Care Physician: Howard Martinez M.D. DISCHARGE SUMMARY PRINCIPAL DISCHARGE DIAGNOSES 1. Ekydw-hg-woohcui diastolic congestive heart failure. 2. Qegjx-bn-sjdtvwg respiratory failure with hypoxemia and hypercarbia. 3. Hypertension. 4. Chronic kidney disease stage 3. 5. Chronic right hydronephrosis. 6. Acute hemorrhage into the right kidney during this admission. 7. Recent urinary tract infection, organism unknown. 8. Microcytic anemia. 9. Paget disease of the bone. 10. Meniere disease. 11. Familial tremor. 12. Hyperlipidemia. 13. Peripheral arterial disease. 14. Coronary artery disease. 15. Severe pulmonary arterial hypertension. 16. Moderate mitral regurgitation. PROCEDURES 1. Thoracentesis on 01/13/17 on the left. Fluid was sent after that for analysis and was consistent with transudate. 2. Patient then underwent right thoracentesis 01/16. 3. Transfused one unit of packed RBCs. CONSULTANTS 1. Dr. Man from cardiology. 2. Dr. Reynoso from pulmonary services. 3. Dr. Loomis from urology. REASON FOR HOSPITALIZATION The patient is a 86-year-old white female with a history of hypertension, chronic kidney disease, chronic right hydronephrosis, hyperlipidemia, insomnia, Meniere disease, Paget disease of the bone, familial tremor, peripheral arterial disease, coronary artery disease, pseudogout, recent admission out of town for gross hematuria. During that admission she had problems with hypoxemia, was placed on oxygen, told she had COPD but was not given any inhalers. No pulmonary function tests were done at that time. Apparently she was seen by cardiology during that admission because she has some bilateral pleural effusions. Echo was performed. Her ejection fraction, per the notes from the [facility], was 60%. In any case, the patient was seen in the office. She had an extensive medical chart from the [facility]. We had just called her in some Lasix because of the findings from the [facility] when she Unit #: [id number] #: [id number] Patient: AYANNA GLEASON apparently arrived in the emergency room with acute shortness of air, respiratory failure requiring BiPAP treatment in the ER and respiratory distress. Temperature 99.3. Respirations 28. Blood pressure 159/103. O2 sat was 86% on 2 L. White count was 12.3, hemoglobin 10.2. Cardiac enzymes normal. On 4 L pH of 7.28, pCO2 was 56, PaO2 was 68. Lactic acid was normal. BNP was 1488. BUN was 28. GFR 33. Urinalysis normal. Chest x-ray new moderate CHF with bilateral pleural effusions. EKG normal sinus rhythm, nonspecific ST abnormality. HOSPITAL COURSE The patient was admitted. She was placed on IV Lasix. She was placed on the sodium and fluid restriction, strict Is and Os, daily weights, DVT prophylaxis with Lovenox, CPAP. Cardiology and pulmonary were consulted. Renal function and cardiac enzymes were followed. The patient rapidly improved. She was a DNR per her own request. Procalcitonin was checked, at 0.14. Peak troponin was 0.5. Iron, B12 and folic acid were normal except for low transferrin saturation. Echo was performed. Ejection fraction was 60%. Right ventricular systolic pressures was 71 mmHg, consistent with severe pulmonary hypertension. Moderate mitral regurgitation. Moderate to severe tricuspid regurgitation. Right ventricular systolic pressure was 71, as mentioned above. There is no pericardial effusion. Thoracentesis on 01/13/17 on the left. was sent after that for analysis and was consistent with transudate. Patient then underwent right thoracentesis 01/16. She was transferred out of the ICU on the . Stool for occult blood was ordered as her hemoglobin was dropping and that was negative but it was fecal occult blood test. The Acevedo catheter was discontinued on the . She then began having right flank pain on the evening of the which did not seem to be musculoskeletal. There was no rash or bruise in the area. STAT CT was performed and she had a hemorrhage into the right kidney. Urology was consulted. Plan at that time was to do a cysto and a right stent but on further discussion with her previous nephrology it was decided that would not be performed. Her Lovenox was discontinued. SCDs were placed for DVT prophylaxis. Plan per urology is to bring her back and do a right nephrectomy in one to two weeks. Her hemoglobin dropped to 7.7 on the and she was typed and crossmatched and transfused one unit of packed RBCs. Her aspirin was discontinued. This morning her BUN and creatinine were up a little bit at 53 and 2.2. Hemoglobin was up to 8.4. Her platelets have been slightly low but improving currently at 125. Her Lasix was held today. She had a chest x-ray this morning and showed a moderate left lower lobe atelectasis with tiny effusions. Urine culture was sent a couple of days ago, is growing Enterococcus which is sensitive to ampicillin and nitrofurantoin which I was not aware of from this morning although the urinalysis that they sent only showed a trace protein and 0.2 urobilinogen. She has been on Omnicef after being on Rocephin. Will discontinue this and place her on ampicillin. DISPOSITION In any case, she is being discharged to [facility]. DIET She is on a healthy heart diet, 1800 mL fluid restriction. CODE STATUS She is a DNR. Unit #: [id number] #: [id number] Patient: AYANNA GLEASON CURRENT MEDICATIONS 1. Albuterol mini-neb per unit dose q.i.d. 2. Celexa 20 mg daily. 3. Meclizine 25 mg daily. 4. Atorvastatin 80 mg q.h.s. 5. Klonopin 0.5 mg q.h.s. 6. Lopressor 25 mg p.o. b.i.d. 7. Furosemide 40 mg p.o. daily starting 01/21/17. 8. Clonidine 0.1 mg p.o. b.i.d. 9. Hydralazine 25 mg p.o. b.i.d. 10. Pepcid 40 mg p.o. daily. 11. Percocet 10/325 one tab q.4 h. p.r.n. for pain. 12. Ampicillin 500 mg p.o. q.i.d. DISCHARGE INSTRUCTIONS AND FOLLOWUP 1. The patient needs to have a followup CBC and BMP in about two days to recheck her renal function, anemia and thrombocytopenia. 2. Again she is to be brought back to the hospital per urology for a right nephrectomy in one to two weeks. I am not sure how they are going to schedule that. 3. She is being discharged to the [facility]. Dictated by... Howard Martinez M.D. LILY/perfecto TD: 01/20/2017 17:44 JOB #: [id number] DISCHARGE SUMMARY Page 1 of 1 X Howard Martinez MD X DISCHARGE SUMMARY
--- NOTE | ~2017-01-12 | EKG ---
PATIENT: AYANNA GLEASON UNIT #: [id number] Ventricular Rate: 93 BPM Atrial Rate: 93 BPM P-R Interval: 132 ms QRS Duration: 92 ms Q-T Interval: 368 ms QTC Calculation(Bezet): 457 ms P [place]: 49 degrees Calculated R [place]: 43 degrees Calculated T [place]: 9 degrees Diagnosis Line: Normal sinus rhythm with sinus arrhythmia Diagnosis Line: Nonspecific ST abnormality Diagnosis Line: Abnormal ECG Diagnosis Line: When compared with ECG of 30-NOV-2016 13:36, Diagnosis Line: Vent. rate has increased BY 33 BPM Diagnosis Line: T wave inversion no longer evident in Lateral Diagnosis Line: leads Diagnosis Line: Confirmed by BOSTON DOE MD ([id number]) on 01/14/2017 Diagnosis Line: 8:18:16 AM INTERPRETING MD: NADER BRAN
--- NOTE | ~2017-01-12 | CR72 ---
[facility] A Service of [facility] & [facility] RADIOLOGY TEXT RESULTS PATIENT: AYANNA GLEASON LOCATION: [facility] 326- : 30 UNIT #: [id number] AGE: [address]: Howard Martinez MD SEX: F ORDER DR: [id number] [facility] [address] [facility]. [place], [place] [address] [id number] I MR#: [id number] Acc #: [id number] NAME: AYANNA GLEASON : 1930 SEX: F STUDY DATE/TIME: 01/18/2017 6:19 UNIT: [address] ROOM: [facility] STUDY DESCRIPTION: CR Chest Single View Portable Attending Physician: Howard Martinez M.D. Ordering Physician: Onofre Reynoso M.D. Primary Care Physician: Howard Martinez M.D. MEDICAL IMAGING REPORT This report is preliminary unless electronic signature is present EXAM Portable chest, 01/18. INDICATIONS CHF, shortness of air and lower leg edema for 6 days. FINDINGS AP portable chest is compared with 01/16/2017. Heart remains markedly enlarged. There are small bilateral pleural effusions, which appears stable. There is infiltrate or atelectasis in the bases. No pneumothorax. Dictated by... Cleve Murray Jr., M.D. THIS IS AN ELECTRONICALLY VERIFIED REPORT Cleve Murray Jr., M.D. at 01/18/2017 4:45 PM EDGARK/bailey TD: 01/18/2017 12:16 JOB #: [id number] MEDICAL IMAGING REPORT Page 1 of 1 COPY
--- NOTE | ~2017-01-12 | XA203 ---
[facility] A Service of [facility] & [facility] RADIOLOGY TEXT RESULTS PATIENT: AYANNA GLEASON LOCATION: [facility] 326- : 30 UNIT #: [id number] AGE: [address]: Howard Martinez MD SEX: F ORDER DR: [id number] [place] [id number] [facility]. [place], [place] [address] [id number] I MR#: [id number] Acc #: [id number] NAME: AYANNA GLEASON : 1930 SEX: F STUDY DATE/TIME: 01/16/2017 9:16 UNIT: A [facility] ROOM: [facility] STUDY DESCRIPTION: XA Thoracentesis Attending Physician: Howard Martinez M.D. Ordering Physician: Onofre Reynoso M.D. Primary Care Physician: Howard Martinez M.D. MEDICAL IMAGING REPORT This report is preliminary unless electronic signature is present EXAM Ultrasound-guided paracentesis INDICATION Right pleural effusion PROCEDURE The risks, benefits and alternatives to the procedure were explained to the patient and signed, informed consent was obtained. She was seated in the upright position. Preliminary ultrasound of the right hemithorax was performed which demonstrated a moderate right pleural effusion. This image was permanently saved. The overlying skin was marked. Patient was prepped and draped in the usual sterile fashion. Time-out was performed as per protocol. Skin and subcutaneous tissues were anesthetized with buffered lidocaine. Flexioneh catheter was advanced into the fluid with aspiration of serous material. Catheter was hooked to suction tubing and there was evacuation of a total of 300 mL of serous material. Catheter was then removed and manual pressure was applied until hemostasis was obtained. Patient tolerated the procedure well and there were no immediate complications. IMPRESSION Technically successful ultrasound guided thoracentesis with evacuation of 300 mL of serous material. Ultrasound was used during the procedure and permanent images were saved. Dictated by... Lili Lee M.D. THIS IS AN ELECTRONICALLY VERIFIED REPORT Lili Lee M.D. at 01/18/2017 4:18 PM AFF/jw [facility]. [facility] A Service of [facility] & [facility] RADIOLOGY TEXT RESULTS PATIENT: AYANNA GLEASON LOCATION: [facility] 326-01 : 30 UNIT #: [id number] AGE: [address]: Howard Martinez MD SEX: F ORDER DR: TD: 01/18/2017 13:20 JOB #: [id number] MEDICAL IMAGING REPORT Page 1 of 1 COPY
--- NOTE | ~2017-01-12 | XA203 ---
[facility] A Service of [facility] RADIOLOGY TEXT RESULTS PATIENT: AYANNA GLEASON LOCATION: [facility] 326-01 : 30 UNIT #: [id number] AGE: [address]: Howard Martinez MD SEX: F ORDER DR: [id number] [place] [id number] [facility]. [place], [place] [address] [id number] I MR#: [id number] Acc #: [id number] NAME: AYANNA GLEASON : 1930 SEX: F STUDY DATE/TIME: 01/13/2017 14:12 UNIT: [facility] ROOM: [facility] STUDY DESCRIPTION: XA Thoracentesis Attending Physician: Howard Martinez M.D. Ordering Physician: Onofre Reynoso M.D. Primary Care Physician: Howard Martinez M.D. MEDICAL IMAGING REPORT This report is preliminary unless electronic signature is present EXAM Ultrasound guided left thoracentesis. INDICATIONS Left pleural effusion. The risks, benefits, and alternatives of the procedure discussed with the patient. Informed consent was obtained. In the procedure room, time-out was performed, confirming correct patient and procedure. All elements of maximum sterile-barrier technique utilized according to guidelines appropriate for the procedure. TECHNIQUE/FINDINGS Ultrasound of the left posterior hemithorax was performed. The overlying skin was prepped and draped in usual sterile fashion. 1% lidocaine utilized to anesthetize the skin and underlying subcutaneous tissues. Next, under ultrasound guidance, a 5-[place]izen [place] Yueh catheter was inserted into the left pleural space and 330 mL of fluid was removed and samples sent to the lab. Needle was removed and a sterile dressing was applied. No immediate complications. IMPRESSION Technically successful ultrasound guided left thoracentesis. Dictated by... Manjinder Kidd M.D. THIS IS AN ELECTRONICALLY VERIFIED REPORT Manjinder Kidd M.D. at 01/16/2017 12:15 PM JENNIFER/marcel TD: 01/13/2017 22:36 JOB #: [id number] [place] [address] A Service of [facility] & [facility] RADIOLOGY TEXT RESULTS PATIENT: AYANNA GLEASON LOCATION: [facility] 326-01 : 30 UNIT #: [id number] AGE: [address]: Howard Martinez MD SEX: F ORDER DR: MEDICAL IMAGING REPORT Page 1 of 1 COPY
--- NOTE | ~2017-01-12 | CR63 ---
[facility] A Service of [facility] RADIOLOGY TEXT RESULTS PATIENT: AYANNA GLEASON LOCATION: [facility] 326 : 30 UNIT #: [id number] AGE: [address]: Howard Martinez MD SEX: F ORDER DR: [id number] [facility] [address] [facility]. [place], [place] [address] [id number] I MR#: [id number] Acc #: [id number] NAME: AYANNA GLEASON : 1930 SEX: F STUDY DATE/TIME: 01/15/2017 7:29 UNIT: [address] ROOM: [facility] STUDY DESCRIPTION: CR Chest 2 View Attending Physician: Howard Martinez M.D. Ordering Physician: Onofre Reynoso M.D. Primary Care Physician: Howard Martinez M.D. MEDICAL IMAGING REPORT This report is preliminary unless electronic signature is present EXAM Two-view chest INDICATION Respiratory failure, shortness of air today. PROCEDURE Frontal and lateral views of the chest. COMPARISON 01/14/2017. FINDINGS Stable cardiomegaly. Moderate-sized bilateral pleural effusions new or increased from the prior. Upper lung zones are clear. No pneumothorax. IMPRESSION 1. Moderate-sized bilateral pleural effusions are new or increased since 01/14/2017. 2. There is a significant compression deformity of a mid thoracic vertebral body. This is age indeterminate, but is new compared with a chest CT in 2015. Dictated by... Hubert Redman M.D. THIS IS AN ELECTRONICALLY VERIFIED REPORT Hubert Redman M.D. at 01/16/2017 8:14 AM LURDES/santa TD: 01/15/2017 08:46 JOB #: [id number] [facility] A Service of [facility] RADIOLOGY TEXT RESULTS PATIENT: AYANNA GLEASON LOCATION: [facility] 326 : 30 UNIT #: [id number] AGE: [address]: Howard Martinez MD SEX: F ORDER DR: MEDICAL IMAGING REPORT Page 1 of 1 COPY
--- NOTE | ~2017-01-12 | CR72 ---
[facility] A Service of [facility] & [facility] RADIOLOGY TEXT RESULTS PATIENT: AYANNA GLEASON LOCATION: [facility] [address]-44 : 30 UNIT #: [id number] AGE: [address]: Howard Martinez MD SEX: F ORDER DR: [id number] [facility] [address] [facility]. [place], [place] [address] [id number] I MR#: [id number] Acc #: [id number] NAME: AYANNA GLEASON. : 1930 SEX: F STUDY DATE/TIME: 01/12/2017 11:44 UNIT: [facility] ROOM: 20340 STUDY DESCRIPTION: CR Chest Single View Portable Attending Physician: Howard Martinez M.D. Ordering Physician: Carlos Sepulveda M.D. Primary Care Physician: Howard Martinez M.D. MEDICAL IMAGING REPORT This report is preliminary unless electronic signature is present EXAM Chest portable 01/12/2017 1144 hours HISTORY 86-year-old woman complaining of shortness of air today. History of hypertension, COPD and coronary stents. COMPARISON 11/29/2016. FINDINGS Portable upright chest demonstrates moderate cardiomegaly similar to prior study with stable tortuous aorta. There is new pulmonary venous distension and new moderate bilateral mixed interstitial and airspace change with moderate bilateral effusions consistent with moderate congestive heart failure. IMPRESSION New moderate congestive heart failure as compared to 11/29/2016. Dictated by... Cecilia Moctezuma M.D. THIS IS AN ELECTRONICALLY VERIFIED REPORT Cecilia Moctezuma M.D. at 01/12/2017 2:37 PM JACQUES/santa TD: 01/12/2017 13:52 JOB #: [id number] MEDICAL IMAGING REPORT Page 1 of 1 COPY
--- NOTE | ~2017-01-12 | EKG ---
PATIENT: AYANNA GLEASON UNIT #: [id number] Ventricular Rate: 62 BPM Atrial Rate: 62 BPM P-R Interval: 140 ms QRS Duration: 106 ms Q-T Interval: 478 ms QTC Calculation(Bezet): 485 ms P [place]: -3 degrees Calculated R [place]: 24 degrees Calculated T [place]ai: -9 degrees Diagnosis Line: Normal sinus rhythm Diagnosis Line: Nonspecific T wave abnormality Diagnosis Line: Prolonged QT Diagnosis Line: Abnormal ECG Diagnosis Line: When compared with ECG of 12-JAN-2017 12:41, Diagnosis Line: (unconfirmed) Diagnosis Line: No significant change was found Diagnosis Line: Confirmed by BOSTON DOE MD ([id number]) on 01/14/2017 Diagnosis Line: 8:29:27 AM INTERPRETING MD: NADER BRAN
--- NOTE | ~2017-01-12 | CR72 ---
[facility] A Service of [facility] RADIOLOGY TEXT RESULTS PATIENT: AYANNA GLEASON LOCATION: [facility] 326- : 30 UNIT #: [id number] AGE: [address]: Howard Martinez MD SEX: F ORDER DR: [id number] [facility] [address] [facility]. [place], [place] [address] [id number] I MR#: [id number] Acc #: [id number] NAME: AYANNA GLEASON : 1930 SEX: F STUDY DATE/TIME: 01/13/2017 14:25 UNIT: [address] ROOM: [facility] STUDY DESCRIPTION: CR Chest Single View Portable Attending Physician: Howard Martinez M.D. Ordering Physician: Ed Doctor [id number] [facility] Primary Care Physician: Howard Martinez M.D. MEDICAL IMAGING REPORT This report is preliminary unless electronic signature is present EXAM Portable chest, 01/13/2017 14: 25 hours HISTORY Shortness of air with left pleural effusion status post thoracentesis today. Evaluate for pneumothorax. COMPARISON 01/12/2017 FINDINGS Portable upright chest demonstrates stable cardiomegaly with tortuous aorta. Bilateral edema is significantly improved if not resolved. There is a stable moderate right pleural effusion with decrease in left pleural effusion. No pneumothorax. IMPRESSION Bilateral pulmonary edema has significantly improved or resolved since yesterday's exam. There are residual pleural effusions, moderate on the right, small on the left. There is no pneumothorax. STAT * RESULT Dictated by... Cecilia Moctezuma M.D. THIS IS AN ELECTRONICALLY VERIFIED REPORT Cecilia Moctezuma M.D. at 01/16/2017 9:01 AM Nandini TD: 01/13/2017 14:41 [facility] A Service of [facility] RADIOLOGY TEXT RESULTS PATIENT: AYANNA GLEASON LOCATION: [facility] 326-01 : 30 UNIT #: [id number] AGE: [address]: Howard Martinez MD SEX: F ORDER DR: JOB #: [id number] MEDICAL IMAGING REPORT Page 1 of 1 COPY
--- NOTE | ~2017-01-12 | CR72 ---
[facility] A Service of [facility] & [facility] RADIOLOGY TEXT RESULTS PATIENT: AYANNA GLEASON LOCATION: [facility] 326- : 30 UNIT #: [id number] AGE: [address]: Howard Martinez MD SEX: F ORDER DR: [id number] [facility] [address] [facility]. [place], [place] [address] [id number] I MR#: [id number] Acc #: [id number] NAME: AYANNA GLEASON : 1930 SEX: F STUDY DATE/TIME: 01/16/2017 09:57 UNIT: [address] ROOM: [facility] STUDY DESCRIPTION: CR Chest Single View Portable Attending Physician: Howard Martinez M.D. Ordering Physician: Lili Lee M.D. Primary Care Physician: Howard Martinez M.D. MEDICAL IMAGING REPORT This report is preliminary unless electronic signature is present EXAM Chest portable, 01/16/2017 09:57 hours HISTORY 86-year-old woman with respiratory failure, congestive heart failure and pleural effusions. Status post thoracentesis today. COMPARISON 01/15/2017 FINDINGS Portable upright chest demonstrates straight stable cardiomegaly. There is blunting of both costophrenic sulci consistent with small bilateral pleural effusions. Right pleural effusion has decreased. There is no definite pneumothorax. IMPRESSION Stable cardiomegaly with bilateral pleural effusions. There is slight decrease in right pleural effusion. There is no pneumothorax. Dictated by... Cecilia Moctezuma M.D. THIS IS AN ELECTRONICALLY VERIFIED REPORT Cecilia Moctezuma M.D. at 01/16/2017 4:29 PM Nandini TD: 01/16/2017 11:40 JOB #: [id number] MEDICAL IMAGING REPORT Page 1 of 1 COPY
--- NOTE | ~2017-01-12 | HP ---
Unit #: [id number] #: [id number] Patient: AYANNA GLEASON [id number] [address] [address] [id number] I MR#: [id number] NAME: AYANNA GLEASON ROOM: [facility] Age: 86 Sex: F Admission Date: 01/12/2017 : 1930 Attending Physician: Howard Martienz M.D. Primary Care Physician: Howard Martinez M.D. HISTORY AND PHYSICAL HISTORY OF PRESENT ILLNESS The patient is an 86-year-old white female with a history of hypertension, chronic kidney disease stage 3, chronic right hydronephrosis despite stent placement without any change in her renal function or hydronephrosis, hyperlipidemia, insomnia, Meniere disease, Paget disease of the bone, familial tremor, peripheral arterial disease, coronary artery disease, pseudogout, and recent admission while out of town for gross hematuria. During that admission, she had problems with hypoxemia and was placed on oxygen. She was told she had COPD but was not discharged home on any inhalers. After I saw the patient in the office the other day, I reviewed her extensive amount of charts from the outlying hospital. They had diagnosed her apparently with diastolic CHF and had noted an ejection fraction of 60%, but I was unable to locate the echo that was performed while there. Apparently, she was seen by Cardiology and was found incidentally on CT scan of the abdomen and pelvis for workup of the hematuria to have bilateral pleural effusions. In any case, after review of the chart, I had ordered some Lasix, and ordered a BNP and PFTs on an outpatient basis, but before the patient could have any of these done, although she had filled the Lasix, she presented to the emergency room this morning with acute worsening shortness of air and respiratory failure requiring BiPAP treatment. PAST MEDICAL HISTORY 1. Coronary artery disease. 2. Peripheral arterial disease. 3. Hypertension. 4. Diastolic CHF. 5. Paget disease of the bone. 6. Chronic kidney disease stage 3. 7. Chronic right hydronephrosis. 8. Hyperlipidemia. 9. Insomnia. 10. Meniere disease. 11. Familial tremor. 12. Pseudogout. PAST SURGICAL HISTORY 1. Cardiac stents. 2. Partial hysterectomy. 3. Cataract surgery. 4. Carotid endarterectomy on the left. 5. Abdominal aortic aneurysm repair. Unit #: [id number] #: [id number] Patient: AYANNA GLEASON 6. Cystoscopy. ALLERGIES Promethazine, Lomotil, Zithromax, ciprofloxacin, hydrocodone, and diphenoxylate. MEDICATIONS PRIOR TO ADMISSION 1. Pepcid 40 mg daily. 2. Metoprolol tartrate 25 mg b.i.d. 3. Prolia 60 mg subcutaneous q.6 months. 4. Clonidine 0.1 mg b.i.d. 5. Celexa 20 mg daily. 6. Tramadol 50 mg b.i.d. p.r.n. 7. Klonopin 0.5 mg at bedtime. 8. Lipitor 80 mg daily. 9. Enteric-coated aspirin 81 mg daily. 10. Multivitamins 1 daily. 11. Meclizine 25 mg daily. 12. Hydralazine 100 mg b.i.d. SOCIAL HISTORY . Nonsmoker, nondrinker, and no street drug use. FAMILY HISTORY Noncontributory. PHYSICAL EXAMINATION GENERAL: She is awake and alert. Hard of hearing. Hearing aids are out. Family is at the bedside. CPAP is on. VITAL SIGNS: Temperature on admission not repeated 99.3, pulse 86, respirations 28, blood pressure 159/103, and O2 saturation was 86% on 2 liters. HEENT: Unremarkable except for pale mucous membranes and the CPAP in place. NECK: Supple without JVD, bruits, adenopathy, or thyromegaly. CHEST: Diffusely decreased breath sounds without any audible rales or wheezes. HEART: Regular rate and rhythm without any murmurs, rubs, or gallops. ABDOMEN: Soft, nondistended, and nontender with positive bowel sounds and no hepatosplenomegaly. EXTREMITIES: No clubbing, cyanosis, or edema. GENITOURINARY/RECTAL: Deferred. NEUROLOGIC: Grossly intact except for the familial tremor. DIAGNOSTIC STUDIES LABORATORY: White count 12.3, hemoglobin 10.2, and platelets 268,000. Cardiac enzymes within normal limits x1 set. On 4 liters per minute nasal cannula pH is 7.282, PCO2 is 56, and PaO2 is 68.8. PT-INR is 1.1. Lactic acid 1.1. BNP 1488. CMP is normal except for BUN of 28 and GFR of 33.9. Urinalysis normal except for 1+ protein. IMAGING: Chest x-ray new moderate CHF. CARDIOLOGY: EKG normal sinus rhythm and nonspecific ST abnormality. IMPRESSION 1. Acute on chronic respiratory failure with hypoxemia, hypercarbia, and respiratory acidosis. Unit #: [id number] #: [id number] Patient: AYANNA GLEASON 2. Diastolic congestive heart failure. 3. Hypertension. 4. Chronic kidney disease stage 3. 5. Chronic right hydronephrosis. 6. Urinary tract infection, on antibiotics per recent Urology visit. 7. Microcytic anemia. 8. Paget disease of the bone. 9. Meniere disease. 10. Familial tremor. 11. Hyperlipidemia. 12. Peripheral arterial disease. 13. Coronary artery disease. PLAN Obtain echo from previous hospitalization. Diurese with IV Lasix. Sodium and fluid restriction. Strict I/Os and daily weights. DVT prophylaxis adjusted for renal insufficiency. CPAP. Cardiology consult. Pulmonary consult. Control blood pressure. Follow renal function. Repeat cardiac enzymes. Discussed with family in detail at the bedside, and they are in agreement with hospitalization and treatment plan. Dictated by Howard Martinez M.D. LILY/tian TD: 01/12/2017 18:23 JOB #: [id number] HISTORY AND PHYSICAL Page 1 of 1 X Howard Martinez MD X HISTORY AND PHYSICAL
--- NOTE | ~2017-01-12 | CR72 ---
[facility] A Service of [facility] & [facility] RADIOLOGY TEXT RESULTS PATIENT: AYANNA GLEASON LOCATION: [facility] 326- : 30 UNIT #: [id number] AGE: [address]: Howard Martinez MD SEX: F ORDER DR: [id number] [facility] [address] [place], [place] [address] [id number] I MR#: [id number] Acc #: [id number] NAME: AYANNA GLEASON : 1930 SEX: F STUDY DATE/TIME: 01/20/2017 6:27 UNIT: [address] ROOM: [facility] STUDY DESCRIPTION: CR Chest Single View Portable Attending Physician: Howard Martinez M.D. Ordering Physician: Onofre Reynoso M.D. Primary Care Physician: Howard Martinez M.D. MEDICAL IMAGING REPORT This report is preliminary unless electronic signature is present EXAM Portable chest. HISTORY Followup lower lobe atelectasis and effusions. FINDINGS This portable view of the chest is compared with 01/18/2017. There is moderate left lower lobe atelectasis and there appear to be tiny effusions and right base atelectasis, as well. The upper lobes are clear. There has been slight increase in left lower lobe atelectasis. Dictated by... Tom Winston M.D. THIS IS AN ELECTRONICALLY VERIFIED REPORT Tom Winston M.D. at 01/20/2017 12:24 PM ABHISHEK/ernestine TD: 01/20/2017 10:37 JOB #: [id number] MEDICAL IMAGING REPORT Page 1 of 1 COPY
[2017-01-12 11:52] LABS: BASOPHIL# 0.2 X10e3 (0-0.3); BASOPHIL% 1.4 % (0-2.5); EOSINOPHIL# 0.1 X10e3 (0-0.7); EOSINOPHIL% 1.1 % (0.0-7.0); HEMATOCRIT 32.5 % (35.0-45.0); HEMOGLOBIN 10.2 gm/dL (12.0-16.0); LYMPHOCYTE# 0.7 X10e3 (1.0-3.5); LYMPHOCYTE% 5.6 % (17.0-45.0); MEAN CELL VOLUME 82.8 FL (83-96); MEAN CORPUSCULAR HEMOGLOBIN 25.9 PG (28-34); MEAN CORPUSCULAR HGB CONC 31.3 g/dL (30-36); MEAN PLATELET VOLUME 9.3 FL (6.5-11.5); MONOCYTE# 0.7 X10e3 (0-1.0); MONOCYTE% 5.3 % (3.0-12.0); NEUTROPHIL# 10.6 X10e3 (1.5-7.1); NEUTROPHIL% 86.6 % (40-75); PLATELET COUNT 268 X10e3 (140-420); RED BLOOD COUNT 3.93 X10e (3.90-5.30); RED CELL DISTRIBUTION WIDTH 16.5 % (11.0-15.5); WHITE BLOOD COUNT 12.3 X10e3 (4.0-10.5)
[2017-01-12 11:53] LABS: DIFF IND NO
[2017-01-12 11:57] LABS: POC - TROPONIN <0.05 ng/mL (<=0.05)
[2017-01-12 12:04] LABS: ARTERIAL BLD GAS O2 SATURATION 89.6 % (90.0-100.0); ARTERIAL BLOOD GAS CARBOXY HB 0.8 %sat (0.0-9.0); ARTERIAL BLOOD GAS HCO3 26.4 mmol/L; ARTERIAL BLOOD GAS MET HB 0.6 %sat (0.0-2.0); ARTERIAL BLOOD GAS pH 7.282 (7.350-7.450)
[2017-01-12 12:05] LABS: ARTERIAL BLOOD GAS ALLEN TEST N; ARTERIAL BLOOD GAS ART SITE RIGHT RADIAL; ARTERIAL BLOOD GAS DELIVERY NASAL CANNULA; ARTERIAL BLOOD GAS PO2 68.8 mmHg (80.0-100); ARTERIAL DRAW? YES
[2017-01-12 12:05] LABS: INR 1.1; PROTHROMBIN TIME (PATIENT) 11.9 SECONDS (10.0-11.7)
[2017-01-12 12:27] LABS: BILIRUBIN, DIRECT 0.2 mg/dL (0.0-0.2); BILIRUBIN,INDIRECT 0.6 mg/dL (0.0-0.9); BILIRUBIN,TOTAL 0.8 mg/dL (0.2-2.0); CREATININE SERUM 1.4 mg/dL (0.6-1.4); GLOM FILT RATE Estimated 33.9 mL/min (>60); POTASSIUM 4.4 mmol/L (3.5-5.1)
[2017-01-12] MEDS ORDERED: PATIENT'S PHARMACY (12:36)
[2017-01-12] MEDS ORDERED: LOPRESSOR PO (12:37)
[2017-01-12] MEDS ORDERED: LIPITOR80 MG PO (12:37)
[2017-01-12] MEDS ORDERED: PRINCIPEN250 MG PO (12:37)
[2017-01-12] MEDS ORDERED: CELEXA20 MG PO (12:37)
[2017-01-12] MEDS ORDERED: CATAPRES0.1 MG PO (12:37)
[2017-01-12] MEDS ORDERED: ATIVAN PO (12:38)
[2017-01-12] MEDS ORDERED: INDERAL LA PO (12:38)
[2017-01-12] MEDS ORDERED: PROTONIX PO (12:38)
[2017-01-12] MEDS ORDERED: LASIX20 MG PO (12:38)
[2017-01-12] MEDS ORDERED: ANTIVERT PO (12:38)
[2017-01-12] MEDS ORDERED: APRESOLINE PO (12:39)
[2017-01-12 14:03] LABS: URINE SOURCE CATH
[2017-01-12 14:10] LABS: URINE APPEARANCE CLEAR; URINE BILIRUBIN NEG (NEG); URINE BLOOD NEG (NEG); URINE COLOR YELLOW; URINE GLUCOSE NORM (NORM); URINE KETONE NEG (NEG); URINE LEUKOCYTE ESTERASE NEG (NEG); URINE NITRATE NEG (NEG); URINE PROTEIN 1+ (NEG); URINE SPECIFIC GRAVITY 1.005 (1.003-1.035); URINE UROBILINOGEN NORM (NORM)
[2017-01-12 14:38] LABS: CULTURE INDICATED? NO; URINE SQUAMOUS EPITHELIAL CELL FEW /[HPF]
[2017-01-12 18:17] LABS: IRON SERUM 49 ug/dL (28-170); TOTAL IRON BINDING CAPACITY 301 ug/dL (269-535); TRANSFERRIN 215 mg/dL (192-382); TRANSFERRIN SATURATION 16 % (20-50)
[2017-01-12 18:30] LABS: FERRITIN 46 ng/mL (11-307)
[2017-01-12 18:33] LABS: FOLATE (FOLIC ACID) >23.3 ng/mL (>5.8)
[2017-01-13 06:25] LABS: BUN/CREATININE RATIO 19.37; CALCIUM SERUM 8.5 mg/dL (8.4-10.2); CREATININE SERUM 1.6 mg/dL (0.6-1.4); GLOM FILT RATE Estimated 28.9 mL/min (>60); POTASSIUM 3.9 mmol/L (3.5-5.1)
[2017-01-13 15:16] LABS: PROTEIN, BODY FLUID 2.5 gm/dL
[2017-01-14 05:15] LABS: BASOPHIL# 0.1 X10e3 (0-0.3); BASOPHIL% 1.1 % (0-2.5); EOSINOPHIL% 0.5 % (0.0-7.0); HEMATOCRIT 26.9 % (35.0-45.0); HEMOGLOBIN 8.6 gm/dL (12.0-16.0); LYMPHOCYTE# 0.5 X10e3 (1.0-3.5); LYMPHOCYTE% 5.9 % (17.0-45.0); MEAN CELL VOLUME 82.7 FL (83-96); MEAN CORPUSCULAR HEMOGLOBIN 26.5 PG (28-34); MEAN PLATELET VOLUME 9.8 FL (6.5-11.5); MONOCYTE# 0.7 X10e3 (0-1.0); MONOCYTE% 8.7 % (3.0-12.0); NEUTROPHIL# 6.9 X10e3 (1.5-7.1); NEUTROPHIL% 83.8 % (40-75); PLATELET COUNT 155 X10e3 (140-420); RED BLOOD COUNT 3.26 X10e (3.90-5.30); RED CELL DISTRIBUTION WIDTH 16.7 % (11.0-15.5); WHITE BLOOD COUNT 8.2 X10e3 (4.0-10.5)
[2017-01-14 05:51] LABS: DIFF IND NO
[2017-01-14 06:28] LABS: CALCIUM SERUM 8.2 mg/dL (8.4-10.2); CREATININE SERUM 2.1 mg/dL (0.6-1.4); GLOM FILT RATE Estimated 20.8 mL/min (>60); MAGNESIUM 1.9 mg/dL (1.6-3.0); PHOSPHOROUS 3.2 mg/dL (2.5-4.6); POTASSIUM 3.7 mmol/L (3.5-5.1)
[2017-01-15 04:56] LABS: HEMATOCRIT 26.3 % (35.0-45.0); HEMOGLOBIN 8.6 gm/dL (12.0-16.0); MEAN CELL VOLUME 82.5 FL (83-96); MEAN CORPUSCULAR HEMOGLOBIN 26.8 PG (28-34); MEAN CORPUSCULAR HGB CONC 32.5 g/dL (30-36); MEAN PLATELET VOLUME 9.3 FL (6.5-11.5); RED BLOOD COUNT 3.19 X10e (3.90-5.30); RED CELL DISTRIBUTION WIDTH 16.3 % (11.0-15.5); WHITE BLOOD COUNT 5.4 X10e3 (4.0-10.5)
[2017-01-15 06:23] LABS: BUN/CREATININE RATIO 22.77; CALCIUM SERUM 7.9 mg/dL (8.4-10.2); CREATININE SERUM 1.8 mg/dL (0.6-1.4); POTASSIUM 3.6 mmol/L (3.5-5.1)
[2017-01-16 05:44] LABS: HEMATOCRIT 25.9 % (35.0-45.0); HEMOGLOBIN 8.4 gm/dL (12.0-16.0); MEAN CELL VOLUME 81.9 FL (83-96); MEAN CORPUSCULAR HEMOGLOBIN 26.7 PG (28-34); MEAN CORPUSCULAR HGB CONC 32.6 g/dL (30-36); MEAN PLATELET VOLUME 9.6 FL (6.5-11.5); RED BLOOD COUNT 3.17 X10e (3.90-5.30); RED CELL DISTRIBUTION WIDTH 16.3 % (11.0-15.5); WHITE BLOOD COUNT 5.6 X10e3 (4.0-10.5)
[2017-01-16 06:09] LABS: BUN/CREATININE RATIO 21.87; CREATININE SERUM 1.6 mg/dL (0.6-1.4); GLOM FILT RATE Estimated 28.9 mL/min (>60); POTASSIUM 4.7 mmol/L (3.5-5.1)
[2017-01-16 11:02] LABS: BODY FLUID SOURCE PLEURAL
[2017-01-16 11:03] LABS: BF TOTAL NUCLEATED CELL COUNT 1050 CMM (0-100); BODY FLUID APPEARANCE BLOODY
[2017-01-16 11:04] LABS: BODY FLUID RBC 68606 CMM
[2017-01-16 11:52] LABS: PROTEIN, BODY FLUID 0.6 gm/dL
[2017-01-17 04:51] LABS: HEMOGLOBIN 8.6 gm/dL (12.0-16.0); MEAN CELL VOLUME 83.2 FL (83-96); MEAN CORPUSCULAR HEMOGLOBIN 26.5 PG (28-34); MEAN CORPUSCULAR HGB CONC 31.8 g/dL (30-36); MEAN PLATELET VOLUME 10.2 FL (6.5-11.5); RED BLOOD COUNT 3.24 X10e (3.90-5.30); RED CELL DISTRIBUTION WIDTH 16.6 % (11.0-15.5)
[2017-01-17 04:52] LABS: WHITE BLOOD COUNT 8.5 X10e3 (4.0-10.5)
[2017-01-17 05:38] LABS: BUN/CREATININE RATIO 25.62; CALCIUM SERUM 8.3 mg/dL (8.4-10.2); CREATININE SERUM 1.6 mg/dL (0.6-1.4); GLOM FILT RATE Estimated 28.9 mL/min (>60); POTASSIUM 4.6 mmol/L (3.5-5.1)
[2017-01-18 05:15] LABS: HEMATOCRIT 24.7 % (35.0-45.0); HEMOGLOBIN 8.1 gm/dL (12.0-16.0); MEAN CELL VOLUME 82.2 FL (83-96); MEAN CORPUSCULAR HGB CONC 32.8 g/dL (30-36); MEAN PLATELET VOLUME 9.9 FL (6.5-11.5); RED BLOOD COUNT 3.01 X10e (3.90-5.30); RED CELL DISTRIBUTION WIDTH 16.1 % (11.0-15.5); WHITE BLOOD COUNT 7.2 X10e3 (4.0-10.5)
[2017-01-18 06:03] LABS: ALBUMIN SERUM 3.1 g/dL (3.5-5.0); BILIRUBIN,TOTAL 0.7 mg/dL (0.2-2.0); MAGNESIUM 1.9 mg/dL (1.6-3.0); PHOSPHOROUS 4.2 mg/dL (2.5-4.6); POTASSIUM 4.3 mmol/L (3.5-5.1); PROTEIN TOTAL SERUM 5.7 g/dL (6.0-8.3)
[2017-01-18 09:22] LABS: URINE APPEARANCE CLEAR; URINE BILIRUBIN NEG (NEG); URINE BLOOD NEG (NEG); URINE COLOR YELLOW; URINE GLUCOSE NEG (NEG); URINE KETONE NEG (NEG); URINE LEUKOCYTE ESTERASE NEG (NEG); URINE NITRATE NEG (NEG); URINE PROTEIN TRACE (NEG); URINE SPECIFIC GRAVITY 1.014 (1.003-1.035); URINE UROBILINOGEN 0.2 MG/DL (NEG)
[2017-01-18 09:24] LABS: URINE SOURCE CLEAN CATCH
[2017-01-19 05:36] LABS: HEMATOCRIT 23.5 % (35.0-45.0); HEMOGLOBIN 7.7 gm/dL (12.0-16.0); MEAN CELL VOLUME 82.2 FL (83-96); MEAN CORPUSCULAR HEMOGLOBIN 26.8 PG (28-34); MEAN CORPUSCULAR HGB CONC 32.6 g/dL (30-36); MEAN PLATELET VOLUME 9.9 FL (6.5-11.5); RED BLOOD COUNT 2.86 X10e (3.90-5.30); WHITE BLOOD COUNT 8.9 X10e3 (4.0-10.5)
[2017-01-19 06:21] LABS: BUN/CREATININE RATIO 20.95; CALCIUM SERUM 7.7 mg/dL (8.4-10.2); CREATININE SERUM 2.1 mg/dL (0.6-1.4); GLOM FILT RATE Estimated 20.8 mL/min (>60); POTASSIUM 4.1 mmol/L (3.5-5.1)
[2017-01-20 03:59] LABS: HEMATOCRIT 25.6 % (35.0-45.0); HEMOGLOBIN 8.4 gm/dL (12.0-16.0); MEAN CELL VOLUME 82.7 FL (83-96); MEAN CORPUSCULAR HEMOGLOBIN 27.1 PG (28-34); MEAN CORPUSCULAR HGB CONC 32.7 g/dL (30-36); MEAN PLATELET VOLUME 10.6 FL (6.5-11.5); RED BLOOD COUNT 3.1 X10e (3.90-5.30); RED CELL DISTRIBUTION WIDTH 15.9 % (11.0-15.5); WHITE BLOOD COUNT 7.3 X10e3 (4.0-10.5)
[2017-01-20 04:35] LABS: BUN/CREATININE RATIO 24.09; CALCIUM SERUM 7.9 mg/dL (8.4-10.2); CREATININE SERUM 2.2 mg/dL (0.6-1.4); GLOM FILT RATE Estimated 19.7 mL/min (>60)
== END 2017-01-20 19:00 | DRG 291 ==
LOC: CED 11:11 → CEDOF 12:50 → C3A PCU 12:50 → CED 13:14 → CEDOF 13:14 → CICCU3 17:35 → C3A PCU 01-14 12:12
PROVIDERS: Emergency Medicine; Internal Medicine; Internal Medicine Pulmonary Disease; Nurse Practitioner
PROC: 5A09357 Assistance with Respiratory Ventilation, Less than 24 Consecutive Hours, Continuous Positive Airway Pressure (ICD-10-PCS; 2017-01-12)
PROC: B246YZZ Ultrasonography of Right and Left Heart using Other Contrast (ICD-10-PCS; principal; 2017-01-13)
PROC: 0W9B3ZZ Drainage of Left Pleural Cavity, Percutaneous Approach (ICD-10-PCS; 2017-01-13)
PROC: 0W993ZZ Drainage of Right Pleural Cavity, Percutaneous Approach (ICD-10-PCS; 2017-01-16)
DX: I13.0 Hypertensive heart and chronic kidney disease with heart failure and stage 1 through stage 4 chronic kidney disease, or unspecified chronic kidney disease (principal); I50.33 Acute on chronic diastolic (congestive) heart failure; J96.21 Acute and chronic respiratory failure with hypoxia; J90 Pleural effusion, not elsewhere classified; E87.2 Acidosis; I27.2 Other secondary pulmonary hypertension; D69.6 Thrombocytopenia, unspecified; N18.3 Chronic kidney disease, stage 3 (moderate); N13.30 Unspecified hydronephrosis; J96.22 Acute and chronic respiratory failure with hypercapnia; Z68.1 Body mass index [BMI] 19.9 or less, adult; N39.0 Urinary tract infection, site not specified; R63.6 Underweight; Z95.5 Presence of coronary angioplasty implant and graft; I25.10 Atherosclerotic heart disease of native coronary artery without angina pectoris; E78.5 Hyperlipidemia, unspecified; I73.9 Peripheral vascular disease, unspecified; J44.9 Chronic obstructive pulmonary disease, unspecified; K21.9 Gastro-esophageal reflux disease without esophagitis; Z87.891 Personal history of nicotine dependence; D64.9 Anemia, unspecified; M88.9 Osteitis deformans of unspecified bone; H81.09 Meniere's disease, unspecified ear; G25.0 Essential tremor; I34.0 Nonrheumatic mitral (valve) insufficiency; M11.20 Other chondrocalcinosis, unspecified site; Z98.49 Cataract extraction status, unspecified eye; Z88.1 Allergy status to other antibiotic agents; Z88.8 Allergy status to other drugs, medicaments and biological substances; Z79.82 Long term (current) use of aspirin; H91.90 Unspecified hearing loss, unspecified ear; R31.0 Gross hematuria; N28.89 Other specified disorders of kidney and ureter; Z90.711 Acquired absence of uterus with remaining cervical stump; G47.00 Insomnia, unspecified
CPT/HCPCS: 36600; 71010; 71020; 74176; 80048; 80053; 80076; 81003; 82274; 82308; 82550; 82553; 82607; 82728; 82746; 82803; 82945; 82947; 83540; 83550; 83605; 83615; 83735; 83880; 83986; 84100; 84157; 84484; 85025; 85027; 85610; 86850; 86900; 86901; 86923; 87040; 87070; 87086; 87186; 87205; 89051; 93005; 93306; 94640; 94660; 94760; 94761; 96374; 96375; 97110; 97116; 97162; 97166; 97530; 97535; 99291; G8978-GP; G8979-GP; G8987-GO; G8988-GO; J0360; J0696; J1650; J1940; J2930; P9016

== ENCOUNTER → 2017-02-06 | Outpatient (CLI) | payer MEDICARE, BC ==
[~2017-02-06] MED LIST changes: +APRESOLINE PO; +ATIVAN PO; +CATAPRES0.1 MG PO; +CELEXA20 MG PO; +INDERAL LA PO; +LASIX20 MG PO; +LIPITOR80 MG PO; +LOPRESSOR PO; +PATIENT'S PHARMACY; +PRINCIPEN250 MG PO; +PROTONIX PO
--- NOTE | ~2017-02-06 | PFT ---
[id number] [facility] [address] [place], [place] [address] [id number] O MR#: [id number] NAME: AYANNA GLEASON ROOM: SEX: F STUDY DATE/TIME: 02/09/2017 : 1930 AGE: 86 STUDY DESCRIPTION: Attending Physician: Howard Martinez M.D. Referring Physician: Howard Martinez M.D. Primary Care Physician: Howard Martinez M.D. PULMONARY DIAGNOSTIC REPORT EXAM Pulmonary function test. FINDINGS Spirometry suggests a mild obstructive defect. There is a borderline response to bronchodilators of 11% yielding a FEV1 of 1.24 L, 86% of predicted. Flow volume loop is consistent with an obstructive defect. Lung volumes suggest air trapping. Diffusion capacity is severely reduced. Consider evaluation for possible emphysema. Dictated by... Timothy Hudson M.D. SELENE/girish TD: 02/09/2017 10:43 JOB #: [id number] PULMONARY DIAGNOSTIC REPORT Page 1 of 1
--- NOTE | ~2017-02-06 | MY29 ---
[facility] A Service of [facility] & [facility] RADIOLOGY TEXT RESULTS PATIENT: AYANNA GLEASON LOCATION: [facility] : 30 UNIT #: [id number] AGE: [address]: Howard Martinez MD SEX: F ORDER DR: [id number] [address] [place], [place] [address] [id number] O MR#: [id number] Acc #: [id number] NAME: AYANNA GLEASON : 1930 SEX: F STUDY DATE/TIME: 02/06/2017 12:18 UNIT: [facility] ROOM: STUDY DESCRIPTION: MY SUHA SCREENING W/ CAD BILAT Attending Physician: Howard Martinez M.D. Referring Physician: Howard Martinez M.D. Ordering Physician: Howard Martinez M.D. Primary Care Physician: Howard Martinez M.D. MEDICAL IMAGING REPORT This report is preliminary unless electronic signature is present EXAM Bilateral digital screening mammogram with CAD COMPARISON 01/15/2016, 12/24/2014, 05/26/2014, 11/21/2013, 10/21/2013, 04/24/2008, 04/21/2007, 04/22/2006, 04/23/2005. INDICATIONS Breast cancer screening. 86-year asymptomatic female with no personal or family history of breast cancer. FINDINGS There are scattered fibroglandular densities. Benign arterial calcifications are noted in both breasts. Overall breast density is increased symmetrically bilaterally, likely due to weight loss. The patient's chin overlaps the field of view of the superior and posterior third on both MLO projections. No suspicious findings are seen in either breast. IMPRESSION No mammographic evidence of malignancy. Continued annual screening mammography is recommended for as long as the patient is in good health ([employer]). BIRADS: 2 Benign Finding. Patients over the age of 40 are entered into a reminder system with target due date for the next mammogram. A result letter will also be sent to the patient. Dictated by... Phani Garner M.D. [facility] A Service of [facility] & [facility] RADIOLOGY TEXT RESULTS PATIENT: AYANNA GLEASON LOCATION: [facility] : 30 UNIT #: [id number] AGE: [address]: Howard Martinez MD SEX: F ORDER DR: THIS IS AN ELECTRONICALLY VERIFIED REPORT Phani Garner M.D. at 02/14/2017 2:42 AM BLM/pcl TD: 02/06/2017 22:02 JOB #: [id number] MEDICAL IMAGING REPORT Page 1 of 1 COPY
== END | disposition home or self-care (01) ==
LOC: CRC 10:03
DX: Z12.31 Encounter for screening mammogram for malignant neoplasm of breast (principal); R06.02 Shortness of breath
CPT/HCPCS: 94060; 94726; 94729; G0202